=== PATIENT | male | born 1955 | race Caucasian/White ===

== ENCOUNTER 2022-01-24 15:04 | Inpatient (IN) | payer OTHER, SELFPAY ==
[2022-01-24] VITALS (14 sets, daily range): BP systolic 119–181; BP diastolic 58–84; PULSE 98–126; RESP 16–22; TEMP 36–38.6; O2SAT 92–95; BMI 33.6
--- NOTE | 2022-01-24 15:18 | ED_ITS ---
HPI - General Adult General Chief complaint: Fever Stated complaint: Stomach issues high blood pressure high blood suga Time Seen by Provider: 01/24/22 15:08 History of Present Illness HPI narrative: 66-year-old gentleman with history of type 2 diabetes, hypertension, asthma, and reflux who presents with worsening abdominal pain, fatigue, dyspnea and hyperglycemia. He has noted that is he has had abdominal pain for the past 2 weeks and has been minimally mobile it has been dramatically worse over the past 3 days to the point he is not able to eat, take his medications and at this point he is weak enough that he is having trouble standing and walking. Abdominal pain continues to worsen. He describes no overt vomiting or diarrhea. He is short of breath secondary to abdominal pain but does not feel that he is wheezing. He reports no significant fevers or headaches. He has not had any increased lower extremity edema. He has had no chest pain or palpitations. On presentation today he is having such abdominal pain that he is actually having trouble taking a full breath and completing sentences. Related Data Allergies Allergy/AdvReac Type Severity Reaction Status Date / Time sulfacetamide Allergy Severe Swelling Verified 01/24/22 16:12 [From Sulfamide] of Lip/Tongue/Throat Review of Systems Review of Systems Narrative: Remainder of complete review of systems is otherwise unremarkable except for that included in the HPI. Patient History Medical History Acid reflux Diabetes Hypertension Surgical History History of partial colectomy Social History Smoking Status: Never smoker Exam Initial Vital Signs Initial Vital Signs: Vital Signs Temperature 100 F H 01/24/22 15:17 Pulse Rate 126 H 01/24/22 15:17 Respiratory Rate 18 01/24/22 15:17 Blood Pressure 146/81 H 01/24/22 15:17 Pulse Oximetry 95 01/24/22 15:17 Oxygen Delivery Method 01/24/22 15:17 General: Pale in obvious distress able to complete full sentences secondary to severity of his abdominal pain and splinting. Unable to take a deep breath due to his abdominal pain. Still able to relate a complete and coherent history. Well-nourished well-developed HEENT: Moist mucous membranes, normal sclera with reactive pupils, Neck: No JVD, supple Respiratory: Lungs are clear to auscultation, no wheezing no rales no rhonchi. Full and symmetrical air movement Cardiac: Tachycardic without murmurs Abdomen: Distended, diffusely tender, hypoactive bowel tones, no flank pain Skin: Warm and dry, no rashes Neurologic: Grossly neurologically intact with no obvious asymmetries or abnormalities Extremities: No trauma, well perfused Psych: Cooperative, appropriate insight and affect Course Orders Ordered: ED Orders 01/24/22 15:29 CT abdomen pelvis w con Stat XR chest 1V Stat EKG-12 Lead Stat 01/24/22 15:35 Complete Blood Count AUTO DIFF Stat Comprehensive Metabolic Panel Stat Lactate (Lactic Acid) Stat Lipase Stat Magnesium Stat Procalcitonin Stat Troponin I Stat 01/24/22 15:41 Venous Blood Gas Stat 01/24/22 15:45 COVID19 -Nasal RAPID/Pre-Proc Stat 01/24/22 15:55 Urinalysis and Microscopic Stat 01/24/22 16:10 Blood Culture Stat 01/24/22 17:45 Trop I [Troponin I] Stat Hydromorphone HCl (Hydromorphone 0.5 Mg Inj) 0.5 mg IV Q15MIN PRN PRN Reason: Pain, Last Admin: 01/24/22 17:12 Dose: 0.5 mg Documented By: Admin: 01/24/22 16:16 Dose: 0.5 mg Documented By: BERENICE Discontinued Medications Acetaminophen (Acetaminophen 325 Mg Tablet) 975 mg PO NOW ONE Stop: 01/24/22 16:28 Last Admin: 01/24/22 16:38 Dose: Not Given Documented By: BERENICE Acetaminophen (Acetaminophen 325 Mg Tablet) 975 mg PO NOW ONE Stop: 01/24/22 16:28 Last Admin: 01/24/22 16:38 Dose: 975 mg Documented By: BERENICE Sodium Chloride (Normal Saline 0.9%) 1,000 mls @ 1,000 mls/hr IV BOLUS ONE Stop: 01/24/22 16:26 Last Admin: 01/24/22 16:16 Dose: 1,000 mls/hr Documented By: BERENICE Ceftriaxone Sodium 2,000 mg/ (Sodium Chloride) 100 mls @ 200 mls/hr IV NOW ONE Stop: 01/24/22 17:36 Last Admin: 01/24/22 17:59 Dose: 200 mls/hr Documented By: JHONATAN Azithromycin 500 mg/ Dextrose 250 mls @ 250 mls/hr IV NOW ONE Stop: 01/24/22 17:36 Ondansetron HCl (Ondansetron 4 Mg/2 Ml Inj) 4 mg IV NOW ONE Stop: 01/24/22 15:28 Last Admin: 01/24/22 16:16 Dose: 4 mg Documented By: BERENICE Tamsulosin HCl (Tamsulosin 0.4 Mg Capsule) 0.4 mg PO NOW ONE Stop: 01/24/22 17:36 Last Admin: 01/24/22 17:59 Dose: 0.4 mg Documented By: JHONATAN Vital Signs Vital signs: Vital Signs - 8 hr 01/24/22 15:17 01/24/22 16:38 01/24/22 15:41 Temperature 100 F H 101.5 F H Pulse Rate 126 H 126 H Respiratory Rate 18 Blood Pressure 146/81 H Pulse Oximetry 95 95 Oxygen Delivery Method Room Air 01/24/22 15:42 01/24/22 15:42 01/24/22 15:45 Temperature Pulse Rate 125 H 124 H Respiratory Rate Blood Pressure 181/84 H Pulse Oximetry 94 94 Oxygen Delivery Method Medical Decision Making Lab Data Result diagrams: 01/24/22 15:35 01/24/22 15:35 Labs: Lab Results 01/24/22 01/24/22 01/24/22 Range/Units 15:35 15:35 15:35 WBC 15.9 H (4.5-11.0) X10^3/uL RBC 4.43 L (4.5-5.9) X10^6/uL Hgb 13.0 L (13.5-17.5) g/dL Hct 39.0 L (41-53) % MCV 88.1 (80-100) fL MCH 29.4 (26-34) PG MCHC 33.3 (30-36) % RDW 13.9 (11.6-14.8) % Plt Count 183 (150-400) X10^3/uL Neut % (Auto) 84.8 H (50-75) % Lymph % (Auto) 5.3 L (25-40) % [place] % (Auto) 9.5 (3-14) % Eos % (Auto) 0.0 L (2-4) % Baso % (Auto) 0.4 (0-2) % Neut # (Auto) 25953 H (1819-4247) /uL Lymph # (Auto) 800 L (1327-1105) /uL [place] # (Auto) 1500 H (0-900) /uL Eos # (Auto) 0 (0-450) /uL Baso # (Auto) 100 (0-100) /uL VBG pH (7.33-7.43) VBG pCO2 (45-50) mmHg VBG pO2 (35-45) mmHg VBG HCO3 (23-28) mmol/L VBG Total CO2 (24-29) mmol/L VBG O2 Saturation (70-75) % VBG Base Excess (0-4) mmol/L Sodium 126 L (137-145) mmol/L Potassium 4.4 (3.4-5.1) mmol/L Chloride 95 L (98-107) mmol/L Carbon Dioxide 20 L (22-32) mmol/L BUN 31 H (9-20) mg/dL Creatinine 1.21 (0.66-1.25) mg/dL Estimated GFR > 60 (>60) mL/min BUN/Creatinine Ratio 25.6 H (6-22) Glucose 531 H* (80-110) mg/dL Lactate 1.1 (0.7-2.1) mmol/L Calcium 9.0 (8.4-10.2) mg/dL Magnesium 1.8 (1.6-2.3) mg/dL Total Bilirubin 1.0 (0.2-1.3) mg/dL AST 21 (17-59) IU/L ALT 17 (<50) IU/L Alkaline Phosphatase 106 (38-126) U/L Troponin I 0.039 H (0.01-0.034) ng/mL Total Protein 7.4 (6.3-8.2) g/dL Albumin 3.7 (3.5-5.0) g/dL Globulin 3.7 (1.7-4.1) g/dL Albumin/Globulin Ratio 1.0 (1.0-2.8) Lipase 290 (23-300) U/L Procalcitonin 1.69 H (<0.5) ng/mL Urine Color Urine Appearance Urine pH (4.5-8.0) Ur Specific [place] (1.000-1.035) Urine Protein (Negative) Urine Glucose (UA) (Negative) g/dL Urine Ketones (NEGATIVE) Urine Occult Blood (Negative) Urine Nitrate (Negative) Urine Bilirubin (NEGATIVE) Urine Urobilinogen (0.2) E.U./dL Ur Leukocyte Esterase (NEGATIVE) Urine RBC (0-5/HPF) Urine WBC (0-5/HPF) Ur Squamous Epith Cells (0-5/HPF) Urine Bacteria (None) Ur Culture Indicated? SARS-CoV-2 (PCR) (Negative) 01/24/22 01/24/22 01/24/22 Range/Units 15:41 15:45 15:55 WBC (4.5-11.0) X10^3/uL RBC (4.5-5.9) X10^6/uL Hgb (13.5-17.5) g/dL Hct (41-53) % MCV (80-100) fL MCH (26-34) PG MCHC (30-36) % RDW (11.6-14.8) % Plt Count (150-400) X10^3/uL Neut % (Auto) (50-75) % Lymph % (Auto) (25-40) % [place] % (Auto) (3-14) % Eos % (Auto) (2-4) % Baso % (Auto) (0-2) % Neut # (Auto) (9952-5287) /uL Lymph # (Auto) (0816-1937) /uL [place] # (Auto) (0-900) /uL Eos # (Auto) (0-450) /uL Baso # (Auto) (0-100) /uL VBG pH 7.47 H (7.33-7.43) VBG pCO2 29.4 L (45-50) mmHg VBG pO2 48 H (35-45) mmHg VBG HCO3 22 L (23-28) mmol/L VBG Total CO2 22 L (24-29) mmol/L VBG O2 Saturation 87 H (70-75) % VBG Base Excess -2.0 L (0-4) mmol/L Sodium (137-145) mmol/L Potassium (3.4-5.1) mmol/L Chloride (98-107) mmol/L Carbon Dioxide (22-32) mmol/L BUN (9-20) mg/dL Creatinine (0.66-1.25) mg/dL Estimated GFR (>60) mL/min BUN/Creatinine Ratio (6-22) Glucose (80-110) mg/dL Lactate (0.7-2.1) mmol/L Calcium (8.4-10.2) mg/dL Magnesium (1.6-2.3) mg/dL Total Bilirubin (0.2-1.3) mg/dL AST (17-59) IU/L ALT (<50) IU/L Alkaline Phosphatase (38-126) U/L Troponin I (0.01-0.034) ng/mL Total Protein (6.3-8.2) g/dL Albumin (3.5-5.0) g/dL Globulin (1.7-4.1) g/dL Albumin/Globulin Ratio (1.0-2.8) Lipase (23-300) U/L Procalcitonin (<0.5) ng/mL Urine Color Yellow Urine Appearance Clear Urine pH 5.0 (4.5-8.0) Ur Specific [place] <=1.005 (1.000-1.035) Urine Protein Trace H (Negative) Urine Glucose (UA) 2+ H (Negative) g/dL Urine Ketones 1+ H (NEGATIVE) Urine Occult Blood 2+ H (Negative) Urine Nitrate Negative (Negative) Urine Bilirubin Negative (NEGATIVE) Urine Urobilinogen 0.2 (0.2) E.U./dL Ur Leukocyte Esterase Negative (NEGATIVE) Urine RBC 0-1/hpf (0-5/HPF) Urine WBC None seen (0-5/HPF) Ur Squamous Epith Cells None seen (0-5/HPF) Urine Bacteria None seen (None) Ur Culture Indicated? Cult not indicated SARS-CoV-2 (PCR) Negative (Negative) Imaging Data Chest x-ray: Radiologist's Impression: FINDINGS:? ? Surgical changes and devices:? None.? ? Lungs and pleura:? There is ill-defined density projecting over the left upper lateral subpleural surface of uncertain etiology.? Lungs are otherwise clear.? No consolidation or pleural effusion. ? Mediastinum:? Mediastinal contours appear normal.? Heart size is normal.? ? Bones and chest wall:? No suspicious bony lesions.? Overlying soft tissues appear unremarkable.? ? IMPRESSION:? ? 1. No acute cardiopulmonary disease. ? 2. Left lateral upper lobe, possibly pleural-based opacity of uncertain e tiology.? Routine chest CT following resolution of the patient's acute illness is recommended for further evaluation.? ? ? Dictated by: Zonia Garcia M.D. on 01/24/2022 at 15:48? CT scan - abdomen/pelvis: Radiologist's Impression: FINDINGS: ? Lower thorax:? Right basilar pulmonary infiltrate noted in the costophrenic sulcus ? Liver:? Normal in size and attenuation. No contour deformity present. ? Biliary system:? Cholecystectomy.? No intra or extrahepatic bile duct dilation. ? Pancreas:? Unremarkable without mass or inflammation evident. ? Spleen:? Normal in size and density. ? Adrenals:? Normal morphology and density. ? Reproductive system:? Prostatic hypertrophy elevates the bladder floor.? Pros meredith measures 4 x 5.5 x 5.9 cm? ? Urinary system:? Normal renal size and attenuation.? Multiple cysts in both kidneys with varying size.? Mild bilateral hydronephrosis associated with bladder distensi on.? No obstructing calculus noted.? Urinary bladder unremarkable. ? Gastrointestinal system:? The bowel is unremarkable without evidence of bowel obstruction or inflammation. The stomach appears unremarkable. ? Appendix:? Appendectomy ? Peritoneal spaces:? No mesenteric or retroperitoneal adenopathy.? No free air.? No free fluid.? ? Vasculature:? The IVC, aorta and iliac vasculature are unremarkable. ? Abdominal wall:? Abdominal wall intact without evidence of ventral or inguinal hernias. ? Musculoskeletal:? Normal bone mineralization.? No acute fractures.? ? IMPRESSION: ? 1. Right lower lobe pulmonary infiltrate, consistent pneumonia. ? 2. Bilateral renal cysts of varying sizes may reflect polycystic kidney disease. ? 3. Mild bilateral hydronephrosis and hydroureter with urinary bladder distension.? Prostate is hypertrophic, and probably resulting in bladder outlet obstruction.? Approved by: Jaison Smith M.D. on 01/24/2022 at 16:21? ECG Data Interpretation: Sinus tachycardia at 1:25 a.m. Right bundle branch block No acute ischemic changes MDM Narrative Medical decision making narrative: 66-year-old gentleman with 2 weeks of mild abdominal pain and 3 days of dramatically increasing abdominal pain with associated leukocytosis. Slightly elevated troponin and will follow but I have a low suspicion for acute coronary syndrome. CT scan results are pending currently CT scan suggests a right lower lobe pneumonia. He has had his temperature increase in was given Tylenol. His abdomen shows a distended bladder large prostate and hydronephrosis likely from bladder outlet obstruction. This may be the significant portion of his pain. Lactic acid is 1.1. He is not hypotensive. He has received fluids, will begin ceftriaxone and azithromycin for outpatient pneumonia. Postvoid residual will be done. Will repeat his t roponin and re-evaluate. Of note, oxygen saturations dropped to 88% and on 2 L he is much more comfortable with saturations in the 95% range. Patient is re-examined he is having perfuse diaphoresis after his fever has broken. Shortness of breath is significantly improved on 2 L of oxygen. Pain i s improved after Eubanks catheter is placed. Findings are reviewed. Spleen that he has a right lower lobe pneumonia because of this he is having a bit of abdominal pain, the fevers and the shortness of breath along with a general malaise. There is no evidence of acute sepsis at this time. This is likely also contributing to his hyperglycemia without evidence of diabetic ketoacidosis or HHS. He does have acute urinary retention and Eubanks catheter is placed he started on tamsulosin and will need discharge leg bag and urology follow-up. Second troponin is currently pending but I suspect that this is more demand ischemia rather than acute coronary syndrome. Care is reviewed with the hospitalist service and patient will be admitted for above discussed issues. All these findings reviewed with patient and his daughter questions are answered. He is safe for transfer to the floor. Discharge Plan Departure Patient Disposition: Admitted As Inpatient Admit Date/Time: 01/24/22 18:12
--- NOTE | 2022-01-24 15:29 | DI.RAD.S_ITS ---
PROCEDURE: XR CHEST 1V INDICATIONS: abdominal pain TECHNIQUE: One view of the chest was acquired. COMPARISON: None. FINDINGS: Surgical changes and devices: None. Lungs and pleura: There is ill-defined density projecting over the left upper lateral subpleural surface of uncertain etiology. Lungs are otherwise clear. No consolidation or pleural effusion. Mediastinum: Mediastinal contours appear normal. Heart size is normal. Bones and chest wall: No suspicious bony lesions. Overlying soft tissues appear unremarkable. IMPRESSION: 1. No acute cardiopulmonary disease. 2. Left lateral upper lobe, possibly pleural-based opacity of uncertain etiology. Routine chest CT following resolution of the patient's acute illness is recommended for further evaluation. Dictated by: Zonia Garcia M.D. on 01/24/2022 at 15:48 Approved by: Zonia Garcia M.D. on 01/24/2022 at 15:49
--- NOTE | 2022-01-24 15:29 | DI.CT.S_ITS ---
PROCEDURE: CT ABDOMEN PELVIS W CON INDICATIONS: severe abdominal pain TECHNIQUE: After the administration of intravenous contrast, axial sections acquired from the lung bases to the pubic symphysis. Coronal and sagittal reformats were performed. For radiation dose reduction, the following was used: automated exposure control, adjustment of mA and/or kV according to patient size. COMPARISON: [facility], CR, ABD/AP 1VW, 03/17/2014, 8:32. FINDINGS: Lower thorax: Right basilar pulmonary infiltrate noted in the costophrenic sulcus Liver: Normal in size and attenuation. No contour deformity present. Biliary system: Cholecystectomy. No intra or extrahepatic bile duct dilation. Pancreas: Unremarkable without mass or inflammation evident. Spleen: Normal in size and density. Adrenals: Normal morphology and density. Reproductive system: Prostatic hypertrophy elevates the bladder floor. Prostate measures 4 x 5.5 x 5.9 cm Urinary system: Normal renal size and attenuation. Multiple cysts in both kidneys with varying size. Mild bilateral hydronephrosis associated with bladder distension. No obstructing calculus noted. Urinary bladder unremarkable. Gastrointestinal system: The bowel is unremarkable without evidence of bowel obstruction or inflammation. The stomach appears unremarkable. Appendix: Appendectomy Peritoneal spaces: No mesenteric or retroperitoneal adenopathy. No free air. No free fluid. Vasculature: The IVC, aorta and iliac vasculature are unremarkable. Abdominal wall: Abdominal wall intact without evidence of ventral or inguinal hernias. Musculoskeletal: Normal bone mineralization. No acute fractures. IMPRESSION: 1. Right lower lobe pulmonary infiltrate, consistent pneumonia. 2. Bilateral renal cysts of varying sizes may reflect polycystic kidney disease. 3. Mild bilateral hydronephrosis and hydroureter with urinary bladder distension. Prostate is hypertrophic, and probably resulting in bladder outlet obstruction. Approved by: Jaison Smith M.D. on 01/24/2022 at 16:21
[2022-01-24 15:50] LABS: Add Manual Diff / Slide Review NO; Basophils Absolute Auto 100 /uL (0-100); Basophils Percent Auto 0.4 % (0-2); Eosinophils Absolute Auto 0 /uL (0-450); Lymphocytes Absolute Auto 800 /uL (1100-4500); Lymphocytes Percent Auto 5.3 % (25-40); Mean Corpuscular HGB Conc 33.3 % (30-36); Mean Corpuscular Hemoglobin 29.4 PG (26-34); Mean Corpuscular Volume 88.1 fL (80-100); Monocytes Absolute Auto 1500 /uL (0-900); Monocytes Percent Auto 9.5 % (3-14); Neutrophils Absolute Auto 13400 /uL (1500-7000); Neutrophils Percent Auto 84.8 % (50-75); Platelet Count 183 X10^3/uL (150-400); Red Blood Cell Count 4.43 X10^6/uL (4.5-5.9); Red Cell Distribution Width 13.9 % (11.6-14.8); White Blood Cell Count 15.9 X10^3/uL (4.5-11.0)
[2022-01-24 16:01] LABS: Appearance Urine UA CLEAR; Bilirubin Urine UA NEGATIVE (NEGATIVE); Color Urine UA YELLOW; Glucose Urine UA 2+ g/dL (Negative); Ketones Urine UA 1+ (NEGATIVE); Leukocyte Esterase Urine UA NEGATIVE (NEGATIVE); Nitrite Urine UA NEGATIVE (Negative); Occult Blood Urine UA 2+ (Negative); Protein Urine UA TRACE (Negative); Specific Gravity Urine UA <=1.005 (1.000-1.035); Urobilinogen Urine UA 0.2 E.U./dL (0.2)
[2022-01-24 16:07] LABS: Alanine Aminotransferase 17 IU/L (<50); Albumin 3.7 g/dL (3.5-5.0); Alkaline Phosphatase 106 U/L (38-126); Aspartate Aminotransferase 21 IU/L (17-59); BUN Creatinine Ratio 25.6 (6-22); Blood Urea Nitrogen 31 mg/dL (9-20); Carbon Dioxide 20 mmol/L (22-32); Chloride 95 mmol/L (98-107); Estimated Glomerular Filt Rate > 60 mL/min (>60); Globulin 3.7 g/dL (1.7-4.1); HEMOLYSIS < 15 (0-50); Lipase 290 U/L (23-300); Magnesium 1.8 mg/dL (1.6-2.3); Potassium 4.4 mmol/L (3.4-5.1); Sodium 126 mmol/L (137-145); Total Protein 7.4 g/dL (6.3-8.2)
[2022-01-24 16:08] LABS: Lactate (Lactic Acid) 1.1 mmol/L (0.7-2.1)
[2022-01-24] MEDS: ONDANSETRON 4 MG/2 ML INJ IV (16:16)
[2022-01-24] MEDS: HYDROMORPHONE 0.5 MG INJ IV ×3 (16:16→18:13)
[2022-01-24] MEDS: SODIUM CHLORIDE 0.9% 1,000 ML 1000 ML IV ×2 (16:16→21:36)
[2022-01-24 16:19] LABS: Glucose 531 mg/dL (80-110); Troponin I 0.039 ng/mL (0.01-0.034)
[2022-01-24 16:25] LABS: Procalcitonin 1.69 ng/mL (<0.5)
[2022-01-24 16:25] LABS: PCO2 VBG 29.4 mmHg (45-50); PO2 VBG 48 mmHg (35-45)
[2022-01-24 16:26] LABS: HCO3 VBG 22 mmol/L (23-28); Oxygen Saturation VBG 87 % (70-75); Total CO2 VBG 22 mmol/L (24-29); pH VBG 7.47 (7.33-7.43)
[2022-01-24 16:28] LABS: Bacteria Urine None Seen; Culture Indicated Urine Cult Not Indicated; RBC Urine 0-1/HPF (0-5/HPF); Squamous Epithelial Cell Urine None Seen (0-5/HPF); WBC Urine None Seen (0-5/HPF)
[2022-01-24] MEDS: ACETAMINOPHEN 325 MG TABLET 975 MG PO (16:38)
[2022-01-24 17:22] LABS: COVID19 -Nasal RAPID Negative (Negative)
[2022-01-24] MEDS: TAMSULOSIN 0.4 MG CAPSULE PO (17:59)
[2022-01-24] MEDS: cefTRIAXone 2,000 MG in SODIUM CHLORIDE 0.9% 100 ML 200 MG IV (17:59)
[2022-01-24 18:23] LABS: Troponin I 0.043 ng/mL (0.01-0.034)
[2022-01-24] MEDS: AZITHROMYCIN 500 MG in DEXTROSE 5% IN WATER 250 ML 250 MG IV (18:37)
[2022-01-24 20:52] LABS: D Dimer 628 ng/ml (<500)
--- NOTE | 2022-01-24 21:18 | DI.CT.S_ITS ---
PROCEDURE: CT ANGIO CHEST PE PROTOCOL INDICATIONS: sob TECHNIQUE: After the administration of intravenous contrast, 2 mm thick sections acquired from the pulmonary apices to the posterior costophrenic angles. 3-dimensional maximum intensity projection (MIP) coronal and sagittal reformats were then acquired through the thorax. For radiation dose reduction, the following was used: automated exposure control, adjustment of mA and/or kV according to patient size. COMPARISON: [facility], CT, CT ABDOMEN PELVIS W CON, 01/24/2022, 16:26. FINDINGS: Image quality: Excellent. Pulmonary arteries: Pulmonary arteries are normal in size, and demonstrate no intraluminal filling defects to suggest central pulmonary embolism. Lower Neck: No lymphadenopathy by size criteria. Thyroid: Visualized thyroid demonstrates no discrete nodules. Axillae: No lymphadenopathy by size criteria. Chest Wall: Unremarkable. Bones: Visualized osseous structures demonstrate no suspicious lesions. Lungs and Airways: There are confluent bilateral areas of consolidation within the lower lobes, right greater than left as well as within the upper lobes extending along the major fissures. There are associated areas of confluent ground-glass opacity with septal thickening. Findings are consistent with pneumonia. The trachea and central airways are patent. Pleura: No pneumothorax or pleural effusions. Heart: Heart size is normal. No pericardial effusion. Thoracic Vessels: The thoracic aorta is normal in size. Mediastinum and [place]: No lymphadenopathy by size criteria. Esophagus: No wall thickening. There is a moderate-sized hiatal hernia. Abdomen: Visualized upper abdomen redemonstrates a few cysts within the partially visualized kidneys. In addition, within the posterior right kidney, there is a oval lesion isodense to the renal cortex consistent with a hyperdense renal cyst or renal mass measuring up to 2.8 cm. IMPRESSION: 1. No evidence of pulmonary embolism. 2. Bilateral confluent areas of consolidation as well as ground-glass opacities with septal thickening. Findings most likely represent pneumonia. 3. Hyperdense cyst or mass within the right kidney. Recommend further evaluation with an ultrasound or renal mass protocol CT or MRI. 4. Moderate-sized hiatal hernia. Dictated by: Ken Meadows M.D. on 01/24/2022 at 23:53 Approved by: Ken Meadows M.D. on 01/25/2022 at 0:05
--- NOTE | 2022-01-24 21:27 | PM.HP.1 ---
History of Present Illness History of Present Illness Date Patient Seen: 01/24/22 Time Patient Seen: 21:00 Chief complaint: Stomach issues high blood pressure high blood suga Narrative: Mr. Foss is a 66M with PMH DM, HTN, GERD who presents to the hospital with urinary hesitancy, abdominal pain and shortness of breath. He notes at least a week of abdominal pain that has worsened over the last few days. He has noted nausea and vomiting. No diarrhea. He feels weak, he has not had much appetite for the last few days. He has had a fever to 102.2. He has no cough. He does note shortness of breath. He has not had dysuria but he has had straining with urination. No chest pain, palpitation, lower extremity edema. In the ED workup was done, vitals notable for temp 100, heart rate 126. blood pressure 146/81. O2 sat dropped to the 80s and placed on 2L o2. Labs notable for WBC 15.9, hgb 13, plts 183. Na 126. BUN 31, creatinine 1.21. Blood sugar 531. Lactate 1.1. Procal 1.69. trop 0.039->0.043. UA negative for infection. COVID negative. Chest xray showed left lateral upper lobe density that was ill defined. CT abdomen/pelvis showed right lower pulmonary infiltrate and bilateral renal cysts with mild bilateral hydronephrosis and hydroureter. He had a blankenship placed with immediate drainage of significant urine. He was ordered for fluids and antibiotics and admitted for further treatment. Family history: mother CVA, sister with breast cancer Patient History Medical History Acid reflux Diabetes Hypertension Surgical History History of partial colectomy Family & Social History Social History: household members spouse Prior Living Arrangements RV Safety & Behavioral: Feels Safe in Current Yes Environment Been Physically Hurt or No Threatened By a Person Tobacco & Substance use: Tobacco type cigarettes Smoking Status Current every day smoker Smoking packs per day 1 alcohol intake current alcohol intake frequency holiday/special occasion Substance Use Type does not use Meds Home Medications and Allergies Home Medications Medication Instructions Recorded Confirmed Type albuterol sulfate 90 mcg/actuation 2 puff inhalation BID 01/24/22 01/24/22 History aerosol inhaler (Ventolin HFA) cyclobenzaprine 10 mg tablet 10 mg PO TID 01/24/22 01/24/22 History insulin glargine 100 unit/mL (3 80 unit SUBCUT DAILY 01/24/22 01/24/22 History mL) subcutaneous pen (Lantus Solostar U-100 Insulin) insulin lispro 100 unit/mL See Rx Instructions .Route .COMPLEX 01/24/22 01/24/22 History subcutaneous cartridge (Humalog U-100 Insulin) Allergies Allergy/AdvReac Type Severity Reaction Status Date / Time sulfacetamide Allergy Severe Swelling Verified 01/24/22 16:12 [From Sulfamide] of Lip/Tongue/Throat Review of Systems Review of Systems Narrative: 14 systems reviewed and negative aside from what is noted in HPI Exam Vital Signs (past 8 hours): - 01/24/22 15:17 01/24/22 16:38 01/24/22 15:41 Temperature 100 F H 101.5 F H Pulse Rate 126 H 126 H Respiratory Rate 18 Blood Pressure 146/81 H Pulse Oximetry 95 95 Oxygen Delivery Method Room Air Oxygen Flow Rate 01/24/22 15:42 01/24/22 15:42 01/24/22 15:45 Temperature Pulse Rate 125 H 124 H Respiratory Rate Blood Pressure 181/84 H Pulse Oximetry 94 94 Oxygen Delivery Method Oxygen Flow Rate 01/24/22 18:09 01/24/22 18:50 Temperature 99.0 F 96.8 F L Pulse Rate 101 H 98 H Respiratory Rate 22 18 Blood Pressure 124/58 L 136/71 Pulse Oximetry 94 95 Oxygen Delivery Method Nasal Cannula Oxygen Flow Rate 2 0 Oxygen Delivery Method Nasal Cannula Oxygen Flow Rate 0 Narrative Exam Narrative: GEN: fatigued, ill appearing HEENT: dry mucous membranes, poor dentition, PERRL NECK: trachea midline, no JVD PULM: poor air movement bilaterally, no wheezes, rhonchi, rales ABD: mildly distended, diffusely and mildly tender, soft, no organomegaly, normal bowel sounds : blankenship in place EXT: warm and well perfused with no edema NEURO: sleepy, oriented, no focal deficits noted Objective Labs Result Diagrams: 01/24/22 15:35 01/24/22 15:35 Labs: Laboratory Results - last 24 hr 01/24/22 01/24/22 01/24/22 15:30 15:35 15:35 WBC 15.9 H RBC 4.43 L Hgb 13.0 L Hct 39.0 L MCV 88.1 MCH 29.4 MCHC 33.3 RDW 13.9 Plt Count 183 Neut % (Auto) 84.8 H Lymph % (Auto) 5.3 L [place] % (Auto) 9.5 Eos % (Auto) 0.0 L Baso % (Auto) 0.4 Neut # (Auto) 14967 H Lymph # (Auto) 800 L [place] # (Auto) 1500 H Eos # (Auto) 0 Baso # (Auto) 100 D-Dimer 628 H VBG pH VBG pCO2 VBG pO2 VBG HCO3 VBG Total CO2 VBG O2 Saturation VBG Base Excess Sodium 126 L Potassium 4.4 Chloride 95 L Carbon Dioxide 20 L BUN 31 H Creatinine 1.21 Estimated GFR > 60 BUN/Creatinine Ratio 25.6 H Glucose 531 H* Lactate Calcium 9.0 Magnesium 1.8 Total Bilirubin 1.0 AST 21 ALT 17 Alkaline Phosphatase 106 Troponin I 0.039 H Total Protein 7.4 Albumin 3.7 Globulin 3.7 Albumin/Globulin Ratio 1.0 Lipase 290 Procalcitonin 1.69 H Urine Color Urine Appearance Urine pH Ur Specific [place] Urine Protein Urine Glucose (UA) Urine Ketones Urine Occult Blood Urine Nitrate Urine Bilirubin Urine Urobilinogen Ur Leukocyte Esterase Urine RBC Urine WBC Ur Squamous Epith Cells Urine Bacteria Ur Culture Indicated? SARS-CoV-2 (PCR) 01/24/22 01/24/22 01/24/22 15:35 15:41 15:45 WBC RBC Hgb Hct MCV MCH MCHC RDW Plt Count Neut % (Auto) Lymph % (Auto) [place] % (Auto) Eos % (Auto) Baso % (Auto) Neut # (Auto) Lymph # (Auto) [place] # (Auto) Eos # (Auto) Baso # (Auto) D-Dimer VBG pH 7.47 H VBG pCO2 29.4 L VBG pO2 48 H VBG HCO3 22 L VBG Total CO2 22 L VBG O2 Saturation 87 H VBG Base Excess -2.0 L Sodium Potassium Chloride Carbon Dioxide BUN Creatinine Estimated GFR BUN/Creatinine Ratio Glucose Lactate 1.1 Calcium Magnesium Total Bilirubin AST ALT Alkaline Phosphatase Troponin I Total Protein Albumin Globulin Albumin/Globulin Ratio Lipase Procalcitonin Urine Color Urine Appearance Urine pH Ur Specific [place] Urine Protein Urine Glucose (UA) Urine Ketones Urine Occult Blood Urine Nitrate Urine Bilirubin Urine Urobilinogen Ur Leukocyte Esterase Urine RBC Urine WBC Ur Squamous Epith Cells Urine Bacteria Ur Culture Indicated? SARS-CoV-2 (PCR) Negative 01/24/22 01/24/22 15:55 17:45 WBC RBC Hgb Hct MCV MCH MCHC RDW Plt Count Neut % (Auto) Lymph % (Auto) [place] % (Auto) Eos % (Auto) Baso % (Auto) Neut # (Auto) Lymph # (Auto) [place] # (Auto) Eos # (Auto) Baso # (Auto) D-Dimer VBG pH VBG pCO2 VBG pO2 VBG HCO3 VBG Total CO2 VBG O2 Saturation VBG Base Excess Sodium Potassium Chloride Carbon Dioxide BUN Creatinine Estimated GFR BUN/Creatinine Ratio Glucose Lactate Calcium Magnesium Total Bilirubin AST ALT Alkaline Phosphatase Troponin I 0.043 H Total Protein Albumin Globulin Albumin/Globulin Ratio Lipase Procalcitonin Urine Color Yellow Urine Appearance Clear Urine pH 5.0 Ur Specific [place] <=1.005 Urine Protein Trace H Urine Glucose (UA) 2+ H Urine Ketones 1+ H Urine Occult Blood 2+ H Urine Nitrate Negative Urine Bilirubin Negative Urine Urobilinogen 0.2 Ur Leukocyte Esterase Negative Urine RBC 0-1/hpf Urine WBC None seen Ur Squamous Epith Cells None seen Urine Bacteria None seen Ur Culture Indicated? Cult not indicated SARS-CoV-2 (PCR) Assessment & Plan Assessment & Plan narrative: Mr. Foss is a 66M with H DM who presents with abdominal pain, shortness of breath, and urinary hesitancy found to have acute urinary retention and pneumonia with respiratory failure. 1. Acute hypoxemic respiratory failure secondary to pneumonia -patient with o2 sats in the 80s on admission -white count elevated consistent with infection, procal of 1.69 -patient complaining of shortness of breath -chest xray concerning for pneumonia with consolidation noted -CT chest to further eval as d-dimer borderline elevated and patient tachycardic 2. Abdominal pain, acute -suspect secondary to acute urinary retention -however despite blankenship placement, patient still complaining of pain -CT showed bilateral hydronephrosis -expect symptoms to improve with further relief of obstruction 3. Acute urinary retention secondary to likely BPH with outlet obstruction -blankenship placed in ED with good urinary output -CT showed mild hydronephrosis -UA negative for infection -started tamsulosin here -may need to dc with blankenship and get outpatient voiding trial 4. Type 2 Diabetes on insulin, with hyperglycemia -prescribed 80U lantus daily at home, does not take regularly -continue 80U lantus daily with insulin sliding scale -check a1c 5. Elevated troponin -patient with no chest pain or EKG changes -initial trop 0.03, then 0.04 -suspect secondary to demand from infection -continue to trend troponins 6. Active smoker -encouraged cessation -nebs prn 7. Left upper lung abnormality -noted on chest xray -ordered CT chest for further evaluation CODE: Full Proxy: Nataly Foss I have utilized all available resources to reconcile the patient's home medications. Time Spent With Patient Critical Care time: I spent a total of [] minutes of critical care time on this patient's care today; this time is exclusive of procedural time. Quality VTE Deep Vein Thrombosis/Pulmonary Embolism Present on Admission: No MIPS - Admit I confirm the patient?s Advance Care Plan is present, Code status is documented, Surrogate decision maker is in patient?s record [If Yes, STOP here]: Yes
[2022-01-24] MEDS: INSULIN LISPRO 100 UNIT/ML 3ML VIAL SUBCUT (21:37)
[2022-01-24] MEDS: ACETAMINOPHEN 325 MG TABLET 650 MG PO (21:43)
[2022-01-24] MEDS: INSULIN GLARGINE 100 UNIT/ML 3ML PEN 80 UNIT SUBCUT (21:53)
[2022-01-25] VITALS (11 sets, daily range): BP systolic 117–156; BP diastolic 66–75; PULSE 95–118; RESP 18–26; TEMP 36.9–38.3; O2SAT 92–96
--- NOTE | 2022-01-25 00:11 | DI.US.S_ITS ---
PROCEDURE: US RENAL COMPLETE INDICATIONS: BILATERAL CYSTS ON CT TECHNIQUE: Real-time scanning was performed of the kidneys and bladder, with image documentation. COMPARISON: [facility], CT, ABD/PELVIS W/CON (PNL), 03/14/2014, 11:19. [facility], CT, CT ABDOMEN PELVIS W CON, 01/24/2022, 16:26. FINDINGS: Kidneys: Kidneys are normal in size. Right kidney measures 12.3 cm long; left kidney measures 12.3 cm long. Right renal cortical thickness is 2.2 cm; left renal cortical thickness is 2.1 cm. Renal cortical echotexture is normal. No left hydronephrosis. Right hydronephrosis versus a renal sinus cyst. Small stones seen on recent CT are not seen sonographically. No suspicious solid mass lesions are identified. Cortical cysts are present in both kidneys as seen on recent CT. Largest right-sided cyst measures up to 5.0 centimeters and largest left-sided cyst measures up to 3.2 centimeters. No suspicious features identified within the visualized cysts. Bladder: A Eubanks catheter is present. The bladder is decompressed and not well evaluated. Miscellaneous: No free pelvic fluid. IMPRESSION: 1. Appearance of the right kidney is indeterminate for hydronephrosis versus presence of a large renal sinus cyst, however a renal sinus cyst is favored as no definite proximal hydroureter is visualized. CT IVP could be obtained for further evaluation if clinically indicated. 2. No left hydronephrosis. 3. A 2.9 centimeter intermediate density structure at the right mid kidney on the prior CT (series 4, image 40 of that examination) is indeterminate for a solid mass versus hemorrhagic/proteinaceous cyst. No definite solid renal mass identified sonographically on the current study, however evaluation/comparison between modalities is difficult due to the presence of multiple cysts. Follow-up renal protocol MRI or CT is recommended for further evaluation on a nonemergent basis. Dictated by: Jaden Haywood M.D. on 01/25/2022 at 14:57 Approved by: Jaden Haywood M.D. on 01/25/2022 at 15:13
[2022-01-25] MEDS: ACETAMINOPHEN 325 MG TABLET 650 MG PO ×4 (02:08→19:57)
--- NOTE | 2022-01-25 02:32 | PC.NURSE ---
Pt admitted at shift change. BS was 409 around 2100, 80 units of lantus and 10 units of humalog was given, at 0220 BS 159. Pt is on 2L NC sating at 92%. Pt was shivering a lot w/ fever of 100.9 and tachy at 110s, order changed for tylenol Q4 and given. Shivers are almost gone and temp now 100.1 but still tachy. Pt has stated that he has sleep apnea but does not wear CPAP at home but has one. Pt also states he smokes a pack a day. asked why BS was so high even though he hasnt been eating much. Rn educated that pt has not been controlling diabetes and it increases when sick. pt says most recent A1c was 9 and stated he knows its high.
[2022-01-25 07:35] LABS: Add Manual Diff / Slide Review NO; Basophils Absolute Auto 0 /uL (0-100); Basophils Percent Auto 0.2 % (0-2); Eosinophils Absolute Auto 0 /uL (0-450); Eosinophils Percent Auto 0.2 % (2-4); Hemoglobin 12.3 g/dL (13.5-17.5); Lymphocytes Absolute Auto 1000 /uL (1100-4500); Lymphocytes Percent Auto 7.3 % (25-40); Mean Corpuscular Hemoglobin 29.4 PG (26-34); Mean Corpuscular Volume 86.5 fL (80-100); Monocytes Absolute Auto 1300 /uL (0-900); Monocytes Percent Auto 10.3 % (3-14); Neutrophils Absolute Auto 10700 /uL (1500-7000); Platelet Count 176 X10^3/uL (150-400); Red Blood Cell Count 4.16 X10^6/uL (4.5-5.9); Red Cell Distribution Width 14.3 % (11.6-14.8); White Blood Cell Count 13.1 X10^3/uL (4.5-11.0)
[2022-01-25 07:37] LABS: BUN Creatinine Ratio 21.3 (6-22); Blood Urea Nitrogen 26 mg/dL (9-20); Calcium 8.7 mg/dL (8.4-10.2); Carbon Dioxide 24 mmol/L (22-32); Chloride 101 mmol/L (98-107); Estimated Glomerular Filt Rate > 60 mL/min (>60); Glucose 125 mg/dL (80-110); HEMOLYSIS < 15 (0-50); Potassium 4.3 mmol/L (3.4-5.1); Sodium 132 mmol/L (137-145)
--- NOTE | 2022-01-25 07:41 | PM.PN.1 ---
Subjective Subjective Date Patient Seen: 01/25/22 Time Patient Seen: 16:00 Interval history: Patient notes improved suprapubic pain but ongoing upper abdominal pain. No pleuritic pain. at bedside. Exam Vital Signs (past 8 hours): - 01/24/22 23:55 01/25/22 00:22 01/25/22 02:20 Temperature 98.6 F 100.9 F H Pulse Rate 102 H 118 H Respiratory Rate 18 Blood Pressure Pulse Oximetry 93 92 Oxygen Delivery Method Nasal Cannula Oxygen Flow Rate 2 2 01/25/22 01:50 01/25/22 06:32 Temperature 99.2 F 99.8 F H Pulse Rate 112 H 110 H Respiratory Rate 20 18 Blood Pressure 117/75 132/72 Pulse Oximetry 93 95 Oxygen Delivery Method Oxygen Flow Rate 2 2 Oxygen Delivery Method Nasal Cannula Oxygen Flow Rate 2 Narrative Exam Narrative: GEN: fatigued, ill appearing HEENT: dry mucous membranes, poor dentition, PERRL NECK: trachea midline, no JVD PULM: poor air movement bilaterally, no wheezes, rhonchi, rales ABD: mildly distended, tender to upper abd with palpation, soft, no organomegaly, normal bowel sounds : blankenship in place EXT: warm and well perfused with no edema NEURO: sleepy, oriented, no focal deficits noted Objective Labs Result Diagrams: 01/25/22 06:50 01/25/22 06:50 Labs: Laboratory Results - last 24 hr 01/24/22 01/24/22 01/24/22 15:30 15:35 15:35 WBC 15.9 H RBC 4.43 L Hgb 13.0 L Hct 39.0 L MCV 88.1 MCH 29.4 MCHC 33.3 RDW 13.9 Plt Count 183 Neut % (Auto) 84.8 H Lymph % (Auto) 5.3 L [place] % (Auto) 9.5 Eos % (Auto) 0.0 L Baso % (Auto) 0.4 Neut # (Auto) 68191 H Lymph # (Auto) 800 L [place] # (Auto) 1500 H Eos # (Auto) 0 Baso # (Auto) 100 D-Dimer 628 H VBG pH VBG pCO2 VBG pO2 VBG HCO3 VBG Total CO2 VBG O2 Saturation VBG Base Excess Sodium 126 L Potassium 4.4 Chloride 95 L Carbon Dioxide 20 L BUN 31 H Creatinine 1.21 Estimated GFR > 60 BUN/Creatinine Ratio 25.6 H Glucose 531 H* Lactate Calcium 9.0 Magnesium 1.8 Total Bilirubin 1.0 AST 21 ALT 17 Alkaline Phosphatase 106 Troponin I 0.039 H Total Protein 7.4 Albumin 3.7 Globulin 3.7 Albumin/Globulin Ratio 1.0 Lipase 290 Procalcitonin 1.69 H Urine Color Urine Appearance Urine pH Ur Specific [place] Urine Protein Urine Glucose (UA) Urine Ketones Urine Occult Blood Urine Nitrate Urine Bilirubin Urine Urobilinogen Ur Leukocyte Esterase Urine RBC Urine WBC Ur Squamous Epith Cells Urine Bacteria Ur Culture Indicated? SARS-CoV-2 (PCR) 01/24/22 01/24/22 01/24/22 15:35 15:41 15:45 WBC RBC Hgb Hct MCV MCH MCHC RDW Plt Count Neut % (Auto) Lymph % (Auto) [place] % (Auto) Eos % (Auto) Baso % (Auto) Neut # (Auto) Lymph # (Auto) [place] # (Auto) Eos # (Auto) Baso # (Auto) D-Dimer VBG pH 7.47 H VBG pCO2 29.4 L VBG pO2 48 H VBG HCO3 22 L VBG Total CO2 22 L VBG O2 Saturation 87 H VBG Base Excess -2.0 L Sodium Potassium Chloride Carbon Dioxide BUN Creatinine Estimated GFR BUN/Creatinine Ratio Glucose Lactate 1.1 Calcium Magnesium Total Bilirubin AST ALT Alkaline Phosphatase Troponin I Total Protein Albumin Globulin Albumin/Globulin Ratio Lipase Procalcitonin Urine Color Urine Appearance Urine pH Ur Specific [place] Urine Protein Urine Glucose (UA) Urine Ketones Urine Occult Blood Urine Nitrate Urine Bilirubin Urine Urobilinogen Ur Leukocyte Esterase Urine RBC Urine WBC Ur Squamous Epith Cells Urine Bacteria Ur Culture Indicated? SARS-CoV-2 (PCR) Negative 01/24/22 01/24/22 01/25/22 15:55 17:45 06:50 WBC 13.1 H RBC 4.16 L Hgb 12.3 L Hct 36.0 L MCV 86.5 MCH 29.4 MCHC 34.0 RDW 14.3 Plt Count 176 Neut % (Auto) 82.0 H Lymph % (Auto) 7.3 L [place] % (Auto) 10.3 Eos % (Auto) 0.2 L Baso % (Auto) 0.2 Neut # (Auto) 88174 H Lymph # (Auto) 1000 L [place] # (Auto) 1300 H Eos # (Auto) 0 Baso # (Auto) 0 D-Dimer VBG pH VBG pCO2 VBG pO2 VBG HCO3 VBG Total CO2 VBG O2 Saturation VBG Base Excess Sodium Potassium Chloride Carbon Dioxide BUN Creatinine Estimated GFR BUN/Creatinine Ratio Glucose Lactate Calcium Magnesium Total Bilirubin AST ALT Alkaline Phosphatase Troponin I 0.043 H Total Protein Albumin Globulin Albumin/Globulin Ratio Lipase Procalcitonin Urine Color Yellow Urine Appearance Clear Urine pH 5.0 Ur Specific [place] <=1.005 Urine Protein Trace H Urine Glucose (UA) 2+ H Urine Ketones 1+ H Urine Occult Blood 2+ H Urine Nitrate Negative Urine Bilirubin Negative Urine Urobilinogen 0.2 Ur Leukocyte Esterase Negative Urine RBC 0-1/hpf Urine WBC None seen Ur Squamous Epith Cells None seen Urine Bacteria None seen Ur Culture Indicated? Cult not indicated SARS-CoV-2 (PCR) 01/25/22 06:50 WBC RBC Hgb Hct MCV MCH MCHC RDW Plt Count Neut % (Auto) Lymph % (Auto) [place] % (Auto) Eos % (Auto) Baso % (Auto) Neut # (Auto) Lymph # (Auto) [place] # (Auto) Eos # (Auto) Baso # (Auto) D-Dimer VBG pH VBG pCO2 VBG pO2 VBG HCO3 VBG Total CO2 VBG O2 Saturation VBG Base Excess Sodium 132 L Potassium 4.3 Chloride 101 Carbon Dioxide 24 BUN 26 H Creatinine 1.22 Estimated GFR > 60 BUN/Creatinine Ratio 21.3 Glucose 125 H D Lactate Calcium 8.7 Magnesium Total Bilirubin AST ALT Alkaline Phosphatase Troponin I Total Protein Albumin Globulin Albumin/Globulin Ratio Lipase Procalcitonin Urine Color Urine Appearance Urine pH Ur Specific [place] Urine Protein Urine Glucose (UA) Urine Ketones Urine Occult Blood Urine Nitrate Urine Bilirubin Urine Urobilinogen Ur Leukocyte Esterase Urine RBC Urine WBC Ur Squamous Epith Cells Urine Bacteria Ur Culture Indicated? SARS-CoV-2 (PCR) [facility] Medical History Acid reflux Diabetes Hypertension Surgical History History of partial colectomy Social History household members: spouse Smoking Status: Current every day smoker alcohol intake: current Assessment & Plan Assessment & Plan narrative: Mr. Foss is a 66M with PMH DM who presents with abdominal pain, shortness of breath, and urinary hesitancy found to have acute urinary retention and pneumonia with respiratory failure. 1. Acute hypoxemic respiratory failure secondary to pneumonia, improving -patient with o2 sats in the 80s on admission -white count elevated consistent with infection, procal of 1.69 -patient complaining of shortness of breath -chest xray concerning for pneumonia with consolidation noted -CTA chest with no evidence of PE but only PNA -continue rocephin, azithro x 5 and 3 days respectively 2. Abdominal pain, acute -suspect secondary to acute urinary retention vs pleuritic pain from PNA -however despite blankenship placement, patient still complaining of pain in upper abd -CT showed bilateral hydronephrosis -expect symptoms to improve with further relief of obstruction 3. Acute urinary retention secondary to likely BPH with outlet obstruction, improving -blankenship placed in ED with good urinary output -CT showed mild hydronephrosis -UA negative for infection -started tamsulosin during admission -may need to dc with blankenship and get outpatient voiding trial 4. Type 2 Diabetes on insulin, with hyperglycemia -prescribed 80U lantus daily at home, does not take regularly -continue 40U lantus daily with insulin sliding scale -a1c 12.2% -student driving instructor consulted 5. Elevated troponin -patient with no chest pain or EKG changes -initial trop 0.03, then 0.04 -suspect secondary to demand from infection -continue to trend troponins 6. Active smoker -encouraged cessation -nebs prn 7. Left upper lung abnormality -noted on chest xray -bilateral pneumonia on CTA chest but no upper lung issue 8. Renal cysts vs mass -seen incidentally on CT, possibly polycystic kidney disease -renal US shows large right cyst vs mass, recommend outpatient f/u CODE: Full Proxy: Nataly Foss I have utilized all available resources to reconcile the patient's home medications. Time Spent With Patient Critical Care time: I spent a total of [] minutes of critical care time on this patient's care today; this time is exclusive of procedural time. Quality VTE Deep Vein Thrombosis/Pulmonary Embolism Present on Admission: No
[2022-01-25 07:43] LABS: Hemoglobin A1C% w Est Avg Glu 12.2 % (4.0-6.0)
[2022-01-25 07:48] LABS: Troponin I 0.038 ng/mL (0.01-0.034)
[2022-01-25] MEDS: AZITHROMYCIN 250 MG TABLET 500 MG PO (09:07)
[2022-01-25] MEDS: ENOXAPARIN 40 MG/0.4 ML SYRINGE SUBCUT (09:07)
[2022-01-25] MEDS: TAMSULOSIN 0.4 MG CAPSULE PO (09:07)
--- NOTE | 2022-01-25 10:44 | CM.DANOTE ---
DCP Assessment: Payor confirmed: Boo PCP confirmed: MD Bebeto @ [facility] in [place] Pt is a 66 y.o. M who presented to the ER with worsening abdominal pain, fatigue, dyspnea, and hyperglycemia. CT ordered and suggests a right lower lobe pneumonia. Pt admitted to the floor for further management and evaluation of his diagnosis. DCP met with pt this morning to discuss discharge needs. , Nataly, at the bedside. Pt laying in bed. DCP introduced self and role. 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 Pt states that he is independent at baseline and does not use any DME's. Pt does not have any discharge needs at this time. Whiteboard updated. Instructed to call. Pt thankful for discussion. P: Once medically stable, pt to discharge home via spouse POV. Shea Holland RN/CYNTHIA Discharge Planning/Care Management CM Discharge Assessment Start: 01/25/22 09:23 Freq: Status: Active Protocol: Document 01/25/22 09:23 LAUREN (Rec: 01/25/22 09:23 [id number]) Discharge Planning Assessment Assigned Blanking Machine Operator Shea Holland RN/CYNTHIA Advance Directives? No History Provided By Patient Prior Living Arrangements RV Household Members spouse Type of transporation used prior to Drives own vehicle admit Independent with ADL's Yes Is patient alert and oriented? Yes Caregiver for Another No Discharge Plan Home Transportation Arrangement Spouse POV Referrals Initiated None needed Additional Comment At this time. Whiteboard Updated in Patient Room with Yes name and ext. # of Blanking Machine Operator Comment Instructed to call if needed. Review Status In Process Please Provide Date Initial DC 01/25/22 Assessment Was Performed Next Review Type Continued Stay Review
[2022-01-25] MEDS: INSULIN LISPRO 100 UNIT/ML 3ML VIAL SUBCUT ×2 (13:30→16:51)
[2022-01-25] MEDS: ONDANSETRON 4 MG/2 ML INJ IV (13:34)
--- NOTE | 2022-01-25 13:47 | DIET.CONS ---
Dietary Consultation Note Admission Date: 01/24/2022 18:12 Assessment: 66y M admitted for pneumonia and hyperglycemia (>500 on admit) referred to nutrition for hyperglycemia with A1c 12.2. RD had received breakfast diet order for patient from machine including estonian toast, orange juice, and whole milk. When RD delivered breakfast this am, kindly informed we provided estonian toast c SF syrup, chicken sausage, and whole milk but held the juice secondary to pt exceeding carb count when ordering. RD met c pt at bedside, spouse Nataly, not in room. Pt states diagnosed c DM2 in 2004, states he went to DM education but didn't finish the series as he didn't find it helpful. Pt has not had DM ed since that time. Pt reports A1c has never been good, usually between 8-10. Pt recalls taking 80U Lantus each evening and 10-15U short acting before meals. Pt states he has not been taking all of his insulin lately because he has not been eating very much. Pt admitted c BG >500, once on insulin protocol, pts BGs in 100-150s. When asked what pt has for a sick day plan, pt states he doesn't have a plan. Pt would benefit from formal DM education with spouse present. Pt states he doesn't know that he wants DM education. Inpatient education interrupted this afternoon as pt was having cramping pain in abd. This RD will check back in the morning to initiate carb counting education with supportive handouts hopefully with spouse present for support. Ht: 170.18 cm Wt: 97.522 kg BMI: 33.6 Last BM: 01/24/22 (01/24/22 18:33) MNA: 8 Jacobo Score: 20 Diet: 01/24/22 Breakfast Carbohydrate Consistent Diet Diet Modifications: Carbohydrate level: Medium (3 CHO) Labs: RBC 4.16 X10^6/uL (4.5-5.9) L 01/25/22 06:50 Hgb 12.3 g/dL (13.5-17.5) L 01/25/22 06:50 Hct 36.0 % (41-53) L 01/25/22 06:50 Creatinine 1.22 mg/dL (0.66-1.25) 01/25/22 06:50 Hemoglobin A1c 12.2 % (4.0-6.0) H 01/25/22 06:50 Lactate 1.1 mmol/L (0.7-2.1) 01/24/22 15:35 Nutrition Diagnosis: altered nutrition related laboratory values (BG, A1c) r/t endocrine dysfunction, nutrition related knowledge deficit and medication mismanagement aeb pt admitted c BG >500, pt with A1c 12.2, pt ordered over his carb level allowed at breakfast, pt not taking insulin as directed without solid sick day plan. Interventions: 1. Introduced pt to idea of OP DSME, encouraged pt to agree to referral to help with diet and medication management, reinforced pt will feel better and have more energy once BGs in good range. Reinforced DM ed can fit into his lifestyle rather than him fitting into DM box. Pt seemed slightly more receptive with this insight. EER: 45-60g CHO per meal, 15-30g per snack Monitoring/Evaluations: f/u Wed with inpatient DM ed on carb counting, hope for referral for further OP management Electronically Signed by: Sarah Rodriguez 01/25/22 13:47 Clinical Dietitian [address] [address]
[2022-01-25] MEDS: MAG HYDROX/ALUMINUM/SIMETH SUS 20 ML, LIDOCAINE VISCOUS 2% 15 ML PO (16:21)
[2022-01-25] MEDS: PANTOPRAZOLE DR 40 MG TABLET PO (16:22)
[2022-01-25 16:36] LABS: Lipase 68 U/L (23-300)
[2022-01-25 17:14] LABS: C-Reactive Protein Quant 30.4 mg/dL (<1.0)
[2022-01-25] MEDS: cefTRIAXone 1,000 MG in SODIUM CHLORIDE 0.9% 100 ML 200 MG IV (19:33)
[2022-01-25] MEDS: SODIUM CHLORIDE 0.9% FLUSH 10 ML IV (19:34)
[2022-01-25] MEDS: SODIUM CHLORIDE 0.9% 250 ML 21 ML IV (19:34)
[2022-01-25] MEDS: INSULIN GLARGINE 100 UNIT/ML 3ML PEN 40 UNIT SUBCUT (20:44)
[2022-01-26] VITALS (14 sets, daily range): BP systolic 114–152; BP diastolic 57–83; PULSE 91–113; RESP 15–22; TEMP 36.4–37.7; O2SAT 88–98
--- NOTE | 2022-01-26 | PC.NURSE ---
Patient is alert and oriented. Breath sounds diminished but CTA; on oxygen at 2L/min per NC with sat of 95%. HRR but tachy at 113 and has elevated BP of 141/66. Denies nausea. BT present and abdomen is soft but reports diffuse tenderness with light palpation. Indwelling catheter is patent. Is able to turn himself in bed. Gait not assessed at time of assessment. Complained of generalized pain which is chronic due to fibromyalgia. Wearing bilateral calf SCD's. Temp elevated at 100.4 so was medicated with Tylenol and temp came down to 98.8. Fall risk score is high and bed alarm is activated.
[2022-01-26] MEDS: ACETAMINOPHEN 325 MG TABLET 650 MG PO ×2 (05:39→16:47)
[2022-01-26] MEDS: PANTOPRAZOLE DR 40 MG TABLET PO (06:26)
[2022-01-26 07:36] LABS: Add Manual Diff / Slide Review NO; Basophils Absolute Auto 0 /uL (0-100); Basophils Percent Auto 0.4 % (0-2); Eosinophils Absolute Auto 100 /uL (0-450); Eosinophils Percent Auto 0.6 % (2-4); Hematocrit 34.4 % (41-53); Hemoglobin 11.9 g/dL (13.5-17.5); Lymphocytes Absolute Auto 800 /uL (1100-4500); Lymphocytes Percent Auto 7.8 % (25-40); Mean Corpuscular HGB Conc 34.5 % (30-36); Mean Corpuscular Hemoglobin 29.7 PG (26-34); Monocytes Absolute Auto 1200 /uL (0-900); Monocytes Percent Auto 11.1 % (3-14); Neutrophils Absolute Auto 8500 /uL (1500-7000); Neutrophils Percent Auto 80.1 % (50-75); Platelet Count 183 X10^3/uL (150-400); Red Cell Distribution Width 14.1 % (11.6-14.8); White Blood Cell Count 10.7 X10^3/uL (4.5-11.0)
--- NOTE | 2022-01-26 07:43 | P.PN_ITS ---
Subjective Subjective Date Patient Seen: 01/26/22 Time Patient Seen: 12:00 Interval history: Patient still having abd pain but today it was in his LLQ and none in his upper quadrant like yesterday. Otherwise nothing new. Exam Vital Signs (past 8 hours): - 01/26/22 00:00 01/26/22 00:00 01/26/22 04:00 Temperature 98.6 F 99.6 F Pulse Rate 101 H 113 H Respiratory Rate 22 19 Blood Pressure 144/83 H 152/81 H Pulse Oximetry 94 94 92 Oxygen Delivery Method Room Air Oxygen Flow Rate 0 01/26/22 06:00 01/26/22 06:34 Temperature Pulse Rate Respiratory Rate Blood Pressure Pulse Oximetry 88 L 95 Oxygen Delivery Method Room Air Nasal Cannula Oxygen Flow Rate 0 2 Oxygen Delivery Method Nasal Cannula Oxygen Flow Rate 2 Narrative Exam Narrative: GEN: fatigued, ill appearing HEENT: dry mucous membranes, poor dentition, PERRL NECK: trachea midline, no JVD PULM: poor air movement bilaterally, no wheezes, rhonchi, rales ABD: mildly distended, tender to lower abd with palpation, soft, no organomegaly, normal bowel sounds : blankenship in place EXT: warm and well perfused with no edema NEURO: sleepy, oriented, no focal deficits noted Objective Labs Result Diagrams: 01/26/22 07:16 01/26/22 07:16 Labs: Laboratory Results - last 24 hr 01/25/22 01/25/22 01/25/22 06:50 06:50 06:50 WBC RBC Hgb Hct MCV MCH MCHC RDW Plt Count Neut % (Auto) Lymph % (Auto) Rhea % (Auto) Eos % (Auto) Baso % (Auto) Neut # (Auto) Lymph # (Auto) Rhea # (Auto) Eos # (Auto) Baso # (Auto) Hemoglobin A1c 12.2 H Troponin I 0.038 H C-Reactive Protein 30.4 H Lipase 01/25/22 01/26/22 06:50 07:16 WBC 10.7 RBC 4.00 L Hgb 11.9 L Hct 34.4 L MCV 86.0 MCH 29.7 MCHC 34.5 RDW 14.1 Plt Count 183 Neut % (Auto) 80.1 H Lymph % (Auto) 7.8 L Rhea % (Auto) 11.1 Eos % (Auto) 0.6 L Baso % (Auto) 0.4 Neut # (Auto) 8500 H Lymph # (Auto) 800 L Rhea # (Auto) 1200 H Eos # (Auto) 100 Baso # (Auto) 0 Hemoglobin A1c Troponin I C-Reactive Protein Lipase 68 D [facility] Medical History Acid reflux Diabetes Hypertension Surgical History History of partial colectomy Social History household members: spouse Smoking Status: Current every day smoker alcohol intake: current Assessment & Plan Assessment & Plan narrative: Mr. Foss is a 66M with H DM who presents with abdominal pain, shortness of breath, and urinary hesitancy found to have acute urinary retention and pneumonia with respiratory failure. 1. Acute hypoxemic respiratory failure secondary to pneumonia, improving -patient with o2 sats in the 80s on admission -white count elevated consistent with infection, procal of 1.69 -patient complaining of shortness of breath -chest xray concerning for pneumonia with consolidation noted -CTA chest with no evidence of PE but only PNA -continue rocephin, azithro x 5 and 3 days respectively 2. Abdominal pain, acute -suspect secondary to acute urinary retention vs pleuritic pain from PNA -however despite blankenship placement, patient still complaining of pain in upper abd -CT showed bilateral hydronephrosis -expect symptoms to improve with further relief of obstruction 3. Acute urinary retention secondary to likely BPH with outlet obstruction, improving -blankenship placed in ED with good urinary output -CT showed mild hydronephrosis -UA negative for infection -started tamsulosin during admission -may need to dc with blankenship and get outpatient voiding trial 4. Type 2 Diabetes on insulin, with hyperglycemia -prescribed 80U lantus daily at home, does not take regularly -continue 40U lantus daily with insulin sliding scale -a1c 12.2% -a and p mechanic consulted and provided education 5. Elevated troponin -patient with no chest pain or EKG changes -initial trop 0.03, then 0.04 -suspect secondary to demand from infection -continue to trend troponins 6. Active smoker -encouraged cessation -nebs prn 7. Left upper lung abnormality -noted on chest xray -bilateral pneumonia on CTA chest but no upper lung issue 8. Renal cysts vs mass -seen incidentally on CT, possibly polycystic kidney disease -renal US shows large right cyst vs mass, recommend outpatient f/u CODE: Full Proxy: Nataly Foss I have utilized all available resources to reconcile the patient's home medications. Dispo: Home in 1-2 days Time Spent With Patient Critical Care time: I spent a total of [] minutes of critical care time on this patient's care today; this time is exclusive of procedural time. Quality VTE Deep Vein Thrombosis/Pulmonary Embolism Present on Admission: No
[2022-01-26 07:45] LABS: BUN Creatinine Ratio 16.1 (6-22); Blood Urea Nitrogen 20 mg/dL (9-20); Calcium 8.6 mg/dL (8.4-10.2); Carbon Dioxide 25 mmol/L (22-32); Chloride 98 mmol/L (98-107); Estimated Glomerular Filt Rate > 60 mL/min (>60); Glucose 167 mg/dL (80-110); HEMOLYSIS < 15 (0-50); Potassium 4.3 mmol/L (3.4-5.1); Sodium 131 mmol/L (137-145)
[2022-01-26] MEDS: ENOXAPARIN 40 MG/0.4 ML SYRINGE SUBCUT (07:51)
[2022-01-26] MEDS: INSULIN LISPRO 100 UNIT/ML 3ML VIAL SUBCUT ×4 (07:51→20:27)
[2022-01-26] MEDS: TAMSULOSIN 0.4 MG CAPSULE PO (07:51)
[2022-01-26] MEDS: AZITHROMYCIN 250 MG TABLET 500 MG PO (07:52)
[2022-01-26] MEDS: SODIUM CHLORIDE 0.9% FLUSH 10 ML IV ×2 (07:54→19:41)
[2022-01-26 08:00] LABS: C-Reactive Protein Quant 24.9 mg/dL (<1.0)
--- NOTE | 2022-01-26 10:53 | DIET.CONS2 ---
Dietary Inpatient Consultation Note Admission Date: 01/24/2022 18:12 Pt and spouse asleep when RD visited this am, checked back after rounds, spouse not in room and pt sleeping soundly with blanket over his head, RD attempted to wake pt unsuccessfully. Set Inpatient DM booklet on bedside table. DM educator to meet c pt on morning. Diet: 01/24/22 Breakfast Carbohydrate Consistent Diet Diet Modifications: Carbohydrate level: Medium (3 CHO) Nutrition Percent Meal Consumed 25% 01/26/22 08:50 Electronically Signed by: Sarah Rodriguez 01/26/22 10:53 Clinical Diet[address] [address]
[2022-01-26] MEDS: OXYCODONE IR 5 MG TABLET PO (16:47)
[2022-01-26] MEDS: ALBUTEROL/IPRATROPIUM 3 ML AMPUL INH (17:45)
[2022-01-26] MEDS: NICOTINE 21 MG PATCH TOP (18:28)
[2022-01-26] MEDS: BUDESONIDE 0.5 MG/2 ML NEB INH (19:26)
[2022-01-26] MEDS: cefTRIAXone 1,000 MG in SODIUM CHLORIDE 0.9% 100 ML 200 MG IV (19:41)
[2022-01-26] MEDS: INSULIN GLARGINE 100 UNIT/ML 3ML PEN 40 UNIT SUBCUT (20:22)
[2022-01-27] VITALS (9 sets, daily range): BP systolic 101–129; BP diastolic 53–64; PULSE 79–98; RESP 17–22; TEMP 35.8–37; O2SAT 91–95
[2022-01-27] MEDS: OXYCODONE IR 5 MG TABLET PO ×4 (00:18→21:07)
--- NOTE | 2022-01-27 00:34 | PC.NURSE ---
Addendum entered by Eve Berry R.N. 01/27/22 07:28: Around 0200 noted patient, while asleep and mouth breathing, was desatting to mid 80's. Needed to increase oxygen to 5L/min to get him > 90%. RT contacted for neb treatment. Original Note: Patient is alert and oriented. Breath sounds very diminished throughout with RA sat of 92%; did start to desat so placed back on oxygen at 1L/min per NC with sat staying > 90% after. HRR w/telemetry reading of SR w/BBB at [address] w/BBB at 0000 (rate 104). Denies nausea. BT present and is drawing in machine tender helper in LLQ; medicated with oxycodone. Indwelling catheter is patent. Able to turn himself in bed. Gait not assessed at this time. Refused SCD's tonight so reminded to ankle wave when awake. Fall risk score is high and bed alarm is activated.
[2022-01-27] MEDS: ALBUTEROL/IPRATROPIUM 3 ML AMPUL INH (02:22)
[2022-01-27] MEDS: ONDANSETRON 4 MG/2 ML INJ IV (02:41)
[2022-01-27] MEDS: ACETAMINOPHEN 325 MG TABLET 650 MG PO (02:41)
[2022-01-27] MEDS: PANTOPRAZOLE DR 40 MG TABLET PO (06:31)
[2022-01-27 07:03] LABS: Add Manual Diff / Slide Review NO; Basophils Absolute Auto 100 /uL (0-100); Basophils Percent Auto 0.7 % (0-2); Eosinophils Absolute Auto 100 /uL (0-450); Eosinophils Percent Auto 0.7 % (2-4); Hematocrit 33.5 % (41-53); Hemoglobin 11.6 g/dL (13.5-17.5); Lymphocytes Absolute Auto 1000 /uL (1100-4500); Lymphocytes Percent Auto 9.2 % (25-40); Mean Corpuscular HGB Conc 34.6 % (30-36); Mean Corpuscular Hemoglobin 29.8 PG (26-34); Mean Corpuscular Volume 86.2 fL (80-100); Monocytes Absolute Auto 900 /uL (0-900); Monocytes Percent Auto 8.5 % (3-14); Neutrophils Absolute Auto 8900 /uL (1500-7000); Neutrophils Percent Auto 80.9 % (50-75); Platelet Count 178 X10^3/uL (150-400); Red Blood Cell Count 3.88 X10^6/uL (4.5-5.9); Red Cell Distribution Width 14.3 % (11.6-14.8)
[2022-01-27 07:20] LABS: BUN Creatinine Ratio 16.9 (6-22); Blood Urea Nitrogen 20 mg/dL (9-20); Calcium 8.3 mg/dL (8.4-10.2); Carbon Dioxide 26 mmol/L (22-32); Chloride 97 mmol/L (98-107); Estimated Glomerular Filt Rate > 60 mL/min (>60); Glucose 186 mg/dL (80-110); HEMOLYSIS < 15 (0-50); Potassium 4.2 mmol/L (3.4-5.1); Sodium 128 mmol/L (137-145)
--- NOTE | 2022-01-27 08:06 | P.PN_ITS ---
Subjective Subjective Date Patient Seen: 01/27/22 Time Patient Seen: 12:00 Interval history: Notes he felt really sweaty from 2-4am overnight. O2 requirements went up to 5L from 2. Currently says his breathing is fine other than cannot take a full breath. No increased cough. Abd pain intermittent but manageable. Hasn't had BM yet. Exam Vital Signs (past 8 hours): - 01/27/22 00:29 01/27/22 02:23 01/27/22 05:00 Temperature 96.5 F L Pulse Rate 98 H 86 Respiratory Rate 22 17 Blood Pressure 103/61 Pulse Oximetry 93 91 Oxygen Delivery Method Nasal Cannula Nasal Cannula Oxygen Flow Rate 5 5 Oxygen Delivery Method Nasal Cannula Oxygen Flow Rate 5 Narrative Exam Narrative: GEN: fatigued, ill appearing HEENT: dry mucous membranes, poor dentition, PERRL NECK: trachea midline, no JVD PULM: poor air movement bilaterally, no wheezes, rhonchi, rales ABD: mildly distended, tender to lower abd with palpation, soft, no organomegaly, normal bowel sounds : blankenship in place EXT: warm and well perfused with no edema NEURO: sleepy, oriented, no focal deficits noted Objective Labs Result Diagrams: 01/27/22 06:47 01/27/22 06:47 Labs: Laboratory Results - last 24 hr 01/27/22 01/27/22 06:47 06:47 WBC 11.0 RBC 3.88 L Hgb 11.6 L Hct 33.5 L MCV 86.2 MCH 29.8 MCHC 34.6 RDW 14.3 Plt Count 178 Neut % (Auto) 80.9 H Lymph % (Auto) 9.2 L [place] % (Auto) 8.5 Eos % (Auto) 0.7 L Baso % (Auto) 0.7 Neut # (Auto) 8900 H Lymph # (Auto) 1000 L [place] # (Auto) 900 Eos # (Auto) 100 Baso # (Auto) 100 Sodium 128 L Potassium 4.2 Chloride 97 L Carbon Dioxide 26 BUN 20 Creatinine 1.18 Estimated GFR > 60 BUN/Creatinine Ratio 16.9 Glucose 186 H Calcium 8.3 L PFSH Medical History Acid reflux Diabetes Hypertension Surgical History History of partial colectomy Social History household members: spouse Smoking Status: Current every day smoker alcohol intake: current Assessment & Plan Assessment & Plan narrative: Mr. Foss is a 66M with PMH DM who presents with abdominal pain, shortness of breath, and urinary hesitancy found to have acute urinary retention and pneumonia with respiratory failure. 1. Acute hypoxemic respiratory failure secondary to pneumonia and pulm edema -patient with o2 sats in the 80s on admission -white count elevated consistent with infection, procal of 1.69 -patient complaining of shortness of breath -chest xray concerning for pneumonia with consolidation noted -CTA chest with no evidence of PE but only PNA -continue rocephin, azithro x 5 and 3 days respectively -start lasix as CXR shows pulm edema which is likely cause of increased O2 req 2. Abdominal pain, improving -suspect secondary to acute urinary retention vs pleuritic pain from PNA -however despite blankenship placement, patient still complaining of pain in upper abd -CT showed bilateral hydronephrosis -expect symptoms to improve with further relief of obstruction 3. Acute urinary retention secondary to likely BPH with outlet obstruction, improving -blankenship placed in ED with good urinary output -CT showed mild hydronephrosis -UA negative for infection -started tamsulosin during admission -may need to dc with blankenship and get outpatient voiding trial 4. Type 2 Diabetes on insulin, with hyperglycemia -prescribed 80U lantus daily at home, does not take regularly -continue 40U lantus daily with insulin sliding scale -a1c 12.2% -marketing communications associate consulted and provided education 5. Elevated troponin -patient with no chest pain or EKG changes -initial trop 0.039, then 0.038 -suspect secondary to demand from infection 6. Active smoker -encouraged cessation -nebs prn 7. Left upper lung abnormality -noted on chest xray -bilateral pneumonia on CTA chest but no upper lung issue 8. Renal cysts vs mass -seen incidentally on CT, possibly polycystic kidney disease -renal US shows large right cyst vs mass, recommend outpatient f/u CODE: Full Proxy: Nataly Foss I have utilized all available resources to reconcile the patient's home medications. Dispo: Home vs SNF in 1 day pending PT eval. Time Spent With Patient Critical Care time: I spent a total of [] minutes of critical care time on this patient's care today; this time is exclusive of procedural time. Quality VTE Deep Vein Thrombosis/Pulmonary Embolism Present on Admission: No
[2022-01-27] MEDS: INSULIN LISPRO 100 UNIT/ML 3ML VIAL SUBCUT ×4 (08:12→20:56)
[2022-01-27] MEDS: TAMSULOSIN 0.4 MG CAPSULE PO (08:30)
[2022-01-27] MEDS: ENOXAPARIN 40 MG/0.4 ML SYRINGE SUBCUT (08:31)
[2022-01-27] MEDS: NICOTINE 21 MG PATCH TOP (08:31)
[2022-01-27] MEDS: SODIUM CHLORIDE 0.9% FLUSH 10 ML IV ×2 (08:31→21:17)
--- NOTE | 2022-01-27 11:20 | DI.RAD.S_ITS ---
PROCEDURE: XR CHEST 1V INDICATIONS: worsened hypoxia TECHNIQUE: One view of the chest was acquired. COMPARISON: [facility], CT, CT ANGIO CHEST PE PROTOCOL, 01/24/2022, 23:02. [facility], CR, XR CHEST 1V, 01/24/2022, 15:32. FINDINGS: Surgical changes and devices: None. Lungs and pleura: Poorly defined bilateral infiltrates are seen, which are worse than on the prior examination, and overall most prominent within the left upper lobe laterally. Generalized interstitial prominence can be seen. On this semiupright portable chest examination, no large pneumothorax or large pleural effusions are seen. Mediastinum: Mediastinal contours appear normal. Heart size is normal. Bones and chest wall: No suspicious bony lesions. Overlying soft tissues appear unremarkable. IMPRESSION: Bilateral infiltrates, which are worst within the left upper lobe. Generalized interstitial prominence can be seen, which is suspicious for pulmonary edema. Dictated by: Yunior Groves M.D. on 01/27/2022 at 11:13 Approved by: Yunior Groves M.D. on 01/27/2022 at 11:15
[2022-01-27] MEDS: FUROSEMIDE 40 MG/4 ML VIAL IV (12:27)
--- NOTE | 2022-01-27 13:02 | DIET.PN1 ---
Dietary Progress Note Assessment: Met with Quique today. was not present. States that he has completed Dm ed at [facility] in the past with classes. He did not find this helpful. States he thinks his elevated BG is from eating high sugar foods/beverages, ie soda, chocolate milk, fudge bars. Also endorses some interest in a CGM. He is on >3 injections per day. Insurance should cover this. States he is interested in looking for a new provider. Unaware that has two PCP clinics. Furthermore, reports a lot of stress recently with 's diagnosis of breast cancer, two relatives have passed in last couple weeks, and overall feeling overwhelmed by current social stresses. Ht: 170.18 cm Wt: 97.522 kg BMI: 33.6 Last BM: 01/24/22 (01/24/22 18:33) MNA: 8 Jacobo Score: 19 Diet: 01/24/22 Breakfast Carbohydrate Consistent Diet Diet Modifications: Carbohydrate level: Medium (3 CHO) Nutrition Percent Meal Consumed 25% 01/27/22 09:00 Percent Meal Consumed 10 01/26/22 18:00 Percent Meal Consumed 2 01/26/22 13:00 Percent Meal Consumed 25% 01/26/22 08:50 Labs: RBC 3.88 X10^6/uL (4.5-5.9) L 01/27/22 06:47 Hgb 11.6 g/dL (13.5-17.5) L 01/27/22 06:47 Hct 33.5 % (41-53) L 01/27/22 06:47 Creatinine 1.18 mg/dL (0.66-1.25) 01/27/22 06:47 Hemoglobin A1c 12.2 % (4.0-6.0) H 01/25/22 06:50 Lactate 1.1 mmol/L (0.7-2.1) 01/24/22 15:35 Nutrition Diagnosis: altered nutrition related laboratory values (BG, A1c) r/t endocrine dysfunction, nutrition related knowledge deficit and medication mismanagement aeb pt admitted c BG >500, pt with A1c 12.2, reports difficulty managing diet and overall diabetes care Interventions: 1.Discussed PCP clinics and convenience for him given where he lives 2. Provided DSME resources and information to encourage OP DM care 3. Reviewed CGM trail possibility with DSME program at 4. Reviewed Plate Method Quique seems receptive. EER: 45-60g CHO per meal, 15-30g per snack Monitoring/Evaluations: rec OP DSME and nutrition therapy Electronically Signed by: Sheba Cullen 01/27/22 13:02 Clinical Dietitian [address] [address]
[2022-01-27] MEDS: polyethylene glycoL 3350 17 GM POWD.PACK PO (14:35)
[2022-01-27] MEDS: SENNOSIDES 8.6 MG TABLET PO ×2 (14:35→21:07)
--- NOTE | 2022-01-27 15:30 | PT.IIE ---
Current Diagnoses Pneumonia, unspecified organism (01/24/22) Surgical History (Last Reviewed 01/24/22 @ 21:36 by Tyrone Victoria MD) History of partial colectomy Medical History (Last Reviewed 01/24/22 @ 21:36 by Tyrone Victoria MD) Acid reflux Diabetes Hypertension Physical Therapy Inpatient Evaluation/Re-Eval M1 PT/OT-IP Prior Functional Status Start: 01/27/22 16:21 Freq: NEEDED Status: Active Protocol: Document 01/27/22 15:30 AB (Rec: 01/27/22 16:36 AB [email or web address]) Medical Review Prior Functional Status Medical History Reviewed Yes Communication able to make needs known Mobility and Gait pt stated that he is independent with all mobilities and ambulation without AD Social History Household Members spouse Living Arrangements RV Number of Floors (Floors) One Floor Number of Stairs To Enter/Railing? 4 steps L rail ascending Home Environment Walk in Shower Home Equipment Hand Held Shower,Grab Bars In Shower Additional Social History Comment pt and spouse's RV located in the same property as spouse's step dad; stated that spouse's brother staying at step dad's house at this time and can assist them if needed. pt stated that spouse will start radiation tx for breast CA next week pt stated that a FWW will not fit in the RV; has access to a SPC M2 PT-IP Current Condition Start: 01/27/22 16:21 Freq: NEEDED Status: Active Protocol: Document 01/27/22 15:30 AB (Rec: 01/27/22 16:36 AB [email or web address]) Physical Therapy Current Condition Current Condition Evaluation Date 01/27/22 Treatment Diagnosis PNA; urinary retention; hydronephrosis; difficulty in walking Onset Date 01/24/22 M3 PT-IP Subjective Start: 01/27/22 16:21 Freq: NEEDED Status: Active Protocol: Document 01/27/22 15:30 AB (Rec: 01/27/22 16:36 AB [email or web address]) Subjective Physical Therapy Visit Type Type Initial Evaluation Visit Start Time 15:30 Visit Stop Time 16:18 Total Visit Minutes 48 Number of TIRE REPAIRMAN Visits 0 Physical Therapy Visit Comments Patient Comments agreeable to do PT Therapy Pain Assessment Pain When Pain Assessed At Rest Location Abdomen Intensity 6 M4 PT-IP Mobility and Gait Start: 10/06/22 16:21 Freq: NEEDED Status: Active Protocol: Document 01/27/22 15:30 AB (Rec: 01/27/22 16:36 AB [email or web address]) PT-Bed Mobility Assessment Supine to Sit Supine to Sit Standby Assistance,1 Person Assistance,Head of Bed Elevated PT-Transfer Assessment Sit to and From Stand Sit to and from Stand Minimal Assistance,Moderate Assistance,1 Person Assistance ,Use of Upper Extremities Equipment Transfer Assistive Device Gait Belt,Front Wheeled Walker Orthotic/Prosthetic Devices or Brace: No Transfers Transfer Destination Chair Transfer Technique Stand Step Pivot Transfer Ability Level of Assist Minimal Assistance,Moderate Assistance,1 Person Assistance ,Use of Upper Extremities Comments Mobility Comments BP in supine: 133/65 O2 sat with 5L/min O2: 90%. pt educated with deep breathing. pt is a mouth breather. completed supine to sit SBA with HOB elevated. pt used bed rail to assist. O2 sat checked: 88%. pt rested and cued for deep breathing. c/o initial dizziness but decreased. BP in sittin /64. O2 sat checked again: 94% . pt completed sit to stand min to mod A and step transfer to chair using FWW min to mod A and max cues. O2 sat checked: 97%. cued for deep breathing: O2 sat increased to 89-90%. rested for a few more minutes. agreed to ambulate. completed sit to stand min to mod A and ambulated ~ 10 ft using FWW min to mod A. needs chair follow. pt requested to sit down. o2 sat after ambulation : 88% but went up to 90% in ~ 5 sec. positioned pt on the chair. call light and table placed within reach. BP at end of tx session: 136/63 o2 sat: 94%. Gait Assessment Gait Gait Assistance Required: Minimum Assistance,Moderate Assistance Distance (Feet) 10 Able to Maintain Weight Bearing Status Yes During Gait Assistive Devices Assistive Device Gait Belt,Front Wheeled Walker Orthotic/Prosthetic Devices or Brace: No Gait Deviations General Gait Pattern Decreased Stride Length, Decreased Feet Clearance,Step- to Gait Factors Limiting Gait Function Factors Limiting Gait Function Decreased Activity Tolerance, Decreased Strength,Difficulty Following Directions,Limited Range of Motion,Pain,Poor Balance,Poor Safety Awareness, Respiratory Distress PT-Balance Assessment Sitting Balance and Reactions Static Sitting Balance Ability Normal Dynamic Sitting Balance Ability Good Standing Balance and Reactions Static Standing Balance Ability Fair Dynamic Standing Balance Ability Poor Device Used FWW M5 PT-IP Objective Assessments Start: 01/27/22 16:21 Freq: NEEDED Status: Active Protocol: Document 01/27/22 15:30 AB (Rec: 01/27/22 16:36 AB [email or web address]) Orientation Orientation/Cognition Level of Alertness Alert Orientation Name,Place,Situation Language Function Ability No Deficits Noted Safety Awareness Decreased Safety Awareness Memory Description Short Term Impaired Gross Range of Motion Lower Extremity ROM Assessment Within Functional Limits Strength Lower Extremity Strength Hip 4-/5 Knee 4-/5 Muscle Tone Muscle Tone WNL Yes M6 PT-IP Treatment Start: 01/27/22 16:21 Freq: NEEDED Status: Active Protocol: Document 01/27/22 15:30 AB (Rec: 01/27/22 16:36 AB [email or web address]) Physical Therapy Treatment Education Education Provided Safety M7 PT-IP Assessment and Plan Start: 01/27/22 16:21 Freq: NEEDED Status: Active Protocol: Document 01/27/22 15:30 AB (Rec: 01/27/22 16:36 AB [email or web address]) PT Summary Assessment and Plan Potential Rehabilitation Potential Fair Status of Condition at Evaluation Evolving Summary Impairments Pain,ROM,Strength,Balance, Coordination,Sensation,Tone, Cognition,Bed Mobility, Transfers,Gait,Activity Tolerance Assessment Summary pt requiring min to mod A with mobility using FWW and has decrease activity tolerance affecting independence. Pt using 5L/min O2 and O2 sat decreased to 87% with activity . pt stated that spouse will be able to assist him at home but spouse is scheduled to have radiation therapy next week. d/c plan depending on progress, but at this time will require SNF rehab. Goals Bed Mobility Goal Standby Assistance Transfer Goal Standby Assistance,Front Wheeled Walker Gait Goal Standby Assistance,Front Wheel Walker Gait Distance 100 Other Goals improve ambulation without AD/ least restrictive AD 150 ft SBA up/down 4 steps L rail ascending SBA Days to Meet Goals 10 Frequency of Treatment Frequency Of Treatment Once a Day Treatment Plan Physical Therapy Treatment Plan Bed Mobility Training,Transfer Training,Gait Training, Therapeutic Exercise,Balance Retraining,Discharge Planning, Hot or Cold Pack,Neuromuscular Re-ed,Coordination Retraining Precautions Other Precautions O2 sat Recommendations To Nursing Amount of Assist Needed 1 Person Assist Discharge Recommendations PT Discharge Recommendations SNF Rehab Equipment Needed for Home Before FWW if going home and not safe Discharge with SPC/without AD Transportation Needs at Discharge Wheelchair/Cabulance
[2022-01-27] MEDS: cefTRIAXone 1,000 MG in SODIUM CHLORIDE 0.9% 100 ML 200 MG IV (20:51)
[2022-01-27] MEDS: INSULIN GLARGINE 100 UNIT/ML 3ML PEN 40 UNIT SUBCUT (20:57)
[2022-01-27] MEDS: BUDESONIDE 0.5 MG/2 ML NEB INH (21:30)
[2022-01-28] VITALS (44 sets, daily range): BP systolic 113–159; BP diastolic 52–88; PULSE 81–96; RESP 18–32; TEMP 36.2–37.4; O2SAT 86–97
[2022-01-28 04:54] LABS: Add Manual Diff / Slide Review NO; Basophils Absolute Auto 0 /uL (0-100); Basophils Percent Auto 0.5 % (0-2); Eosinophils Absolute Auto 200 /uL (0-450); Eosinophils Percent Auto 2.4 % (2-4); Hematocrit 32.8 % (41-53); Hemoglobin 11.4 g/dL (13.5-17.5); Lymphocytes Absolute Auto 1100 /uL (1100-4500); Mean Corpuscular HGB Conc 34.7 % (30-36); Mean Corpuscular Hemoglobin 29.8 PG (26-34); Mean Corpuscular Volume 85.8 fL (80-100); Monocytes Absolute Auto 900 /uL (0-900); Monocytes Percent Auto 10.3 % (3-14); Neutrophils Absolute Auto 6800 /uL (1500-7000); Neutrophils Percent Auto 74.8 % (50-75); Platelet Count 197 X10^3/uL (150-400); Red Blood Cell Count 3.82 X10^6/uL (4.5-5.9); Red Cell Distribution Width 14.3 % (11.6-14.8)
[2022-01-28 05:01] LABS: Blood Urea Nitrogen 24 mg/dL (9-20); Calcium 8.4 mg/dL (8.4-10.2); Carbon Dioxide 23 mmol/L (22-32); Chloride 97 mmol/L (98-107); Estimated Glomerular Filt Rate > 60 mL/min (>60); Glucose 194 mg/dL (80-110); HEMOLYSIS < 15 (0-50); Potassium 3.9 mmol/L (3.4-5.1); Sodium 129 mmol/L (137-145)
[2022-01-28] MEDS: OXYCODONE IR 5 MG TABLET PO ×3 (05:54→18:44)
[2022-01-28] MEDS: ACETAMINOPHEN 325 MG TABLET 650 MG PO ×2 (05:55→15:18)
[2022-01-28] MEDS: ALBUTEROL/IPRATROPIUM 3 ML AMPUL INH (06:19)
--- NOTE | 2022-01-28 06:25 | PC.NURSE ---
Addendum entered by Suzy Sofia R.N. 01/28/22 06:30: Telemetry NSR 94 with a BBB. Original Note: End of shift note. Patient AAOX4, c/o LLQ abd pain, improved with oxycodone 5mg po and tylenol 650mg. This am O2 Sats 88% on 5L NC, notified IRA Johnston. Duo Neb treatment given and RT put patient on non-heated high flow NC 8L, O2 Sats increased to 92%.
--- NOTE | 2022-01-28 07:48 | PM.PN.1 ---
Subjective Subjective Date Patient Seen: 01/28/22 Time Patient Seen: 13:00 Interval history: Patient feels more alive today. Able to eat more as well. Had increased O2 requirement overnight up to 8L HFNC. Exam Vital Signs (past 8 hours): - 01/28/22 01:00 01/28/22 04:49 01/28/22 06:04 Temperature 98.3 F 98.5 F Pulse Rate 81 90 Respiratory Rate 18 18 Blood Pressure 113/52 L 144/68 H Pulse Oximetry 95 91 91 Oxygen Delivery Method Nasal Cannula Oxygen Flow Rate 5 5 6 01/28/22 06:19 Temperature Pulse Rate 90 Respiratory Rate 18 Blood Pressure Pulse Oximetry 91 Oxygen Delivery Method Nasal Cannula Oxygen Flow Rate 8 Fraction of Inspired Oxygen 40 Oxygen Delivery Method Nasal Cannula Oxygen Flow Rate 8 Narrative Exam Narrative: GEN: no acute distress, appears older than stated age HEENT: dry mucous membranes, poor dentition, PERRL NECK: trachea midline, no JVD PULM: poor air movement bilaterally, no wheezes, rhonchi, rales ABD: mildly distended, tender to lower abd with palpation, soft, no organomegaly, normal bowel sounds : blankenship in place EXT: warm and well perfused with no edema NEURO: sleepy, oriented, no focal deficits noted Objective Labs Result Diagrams: 01/28/22 04:32 01/28/22 04:32 Labs: Laboratory Results - last 24 hr 01/28/22 01/28/22 04:32 04:32 WBC 9.0 RBC 3.82 L Hgb 11.4 L Hct 32.8 L MCV 85.8 MCH 29.8 MCHC 34.7 RDW 14.3 Plt Count 197 Neut % (Auto) 74.8 Lymph % (Auto) 12.0 L [place] % (Auto) 10.3 Eos % (Auto) 2.4 Baso % (Auto) 0.5 Neut # (Auto) 6800 Lymph # (Auto) 1100 [place] # (Auto) 900 Eos # (Auto) 200 Baso # (Auto) 0 Sodium 129 L Potassium 3.9 Chloride 97 L Carbon Dioxide 23 BUN 24 H Creatinine 1.09 Estimated GFR > 60 BUN/Creatinine Ratio 22.0 Glucose 194 H Calcium 8.4 PFSH Medical History Acid reflux Diabetes Hypertension Surgical History History of partial colectomy Social History household members: spouse Smoking Status: Current every day smoker alcohol intake: current Assessment & Plan Assessment & Plan narrative: Mr. Foss is a 66M with PMH DM who presents with abdominal pain, shortness of breath, and urinary hesitancy found to have acute urinary retention and pneumonia with respiratory failure. 1. Acute hypoxemic respiratory failure secondary to worsening pneumonia -patient with o2 sats in the 80s on admission -white count elevated consistent with infection, procal of 1.69 -CTA chest 01/24 concerning for pneumonia with bilateral consolidations -repeat CTA chest on 01/28 with worsening bilateral pneumonia, O2 requirements increased to 8L -transferred to ICU due to increased O2 requirements -repeat COVID negative -appreciate tele-ICU consult -continue lasix 20 IV daily to maintain euvolemia 2. Abdominal pain, improving -suspect secondary to acute urinary retention vs pleuritic pain from PNA -CT abd showed bilateral hydronephrosis -expect symptoms to improve with further relief of obstruction -CT angio abd 01/28 with no source found of pain 3. Acute urinary retention secondary to likely BPH with outlet obstruction, improving -blankenship placed in ED with good urinary output -CT showed mild hydronephrosis -UA negative for infection -started tamsulosin during admission -may need to dc with blankenship and get outpatient voiding trial 4. Type 2 Diabetes on insulin, with hyperglycemia -prescribed 80U lantus daily at home, does not take regularly -continue 40U lantus daily with insulin sliding scale -a1c 12.2% -pipe organ installer consulted and provided education 5. Elevated troponin -patient with no chest pain or EKG changes -initial trop 0.039, then 0.038 -suspect secondary to demand from infection 6. Active smoker -encouraged cessation -nebs prn 7. Left upper lung abnormality -noted on chest xray -bilateral pneumonia on CTA chest but no upper lung issue 8. Renal cysts vs mass -seen incidentally on CT, possibly polycystic kidney disease -renal US shows large right cyst vs mass, recommend outpatient f/u CODE: Full Proxy: Nataly Foss I have utilized all available resources to reconcile the patient's home medications. Dispo: Pending workup of worsening PNA and O2 requirements. Time Spent With Patient Critical Care time: I spent a total of [] minutes of critical care time on this patient's care today; this time is exclusive of procedural time. Quality VTE Deep Vein Thrombosis/Pulmonary Embolism Present on Admission: No
--- NOTE | 2022-01-28 07:52 | DI.CT.S_ITS ---
PROCEDURE: CT ANGIO CHEST ABDOMEN PELVIS INDICATIONS: worsened hypoxia, lung infiltrates, abd pain TECHNIQUE: Precontrast 5 mm thick sections acquired from the lung apices to the iliac crests. After the administration of intravenous contrast, 2.5 mm thick sections again acquired from the lung apices to the iliac crests. Maximum intensity projection (MIP) oblique sagittal and coronal reformats were then acquired. For radiation dose reduction, the following was used: automated exposure control. COMPARISON: [facility], MR, ANGIO ABDOMEN, 04/28/2014, 15:22. [facility], CT, ABD/PELVIS W/CON (PNL), 03/14/2014, 11:19. [facility], US, US RENAL COMPLETE, 01/25/2022, 8:05. [facility], CT, CT ANGIO CHEST PE PROTOCOL, 01/24/2022, 23:02. [facility], CT, CT ABDOMEN PELVIS W CON, 01/24/2022, 16:26. FINDINGS: Image quality: Excellent. AORTA: No aortic syndrome. No aortic dissection. No aneurysm. Mild calcified plaque at the aortic arch. CHEST: Lungs and pleura: Bilateral ground-glass and consolidative opacity, increased. Bibasilar consolidations. Emphysematous changes present. Small bilateral pleural effusions, increased. No pneumothorax. Central airways are clear. Mediastinum: Heart size is normal. Mild coronary plaque. No pericardial effusion. Prevascular node measuring 1 cm, (5/51), unchanged. Additional shotty mediastinal lymph nodes. Central pulmonary arteries are normal in size. No central pulmonary embolism. Esophagus is normal in caliber. Small hiatal hernias. Bones and chest wall: No axillary adenopathy by size criteria. Thyroid gland is unremarkable. No suspicious bony lesions. No vertebral body compression fractures. ABDOMEN: Vasculature: Celiac trunk and mesenteric arteries are patent. Renal arteries are also patent. Clip or vascular coil in the region of the left gonadal vein. Solid organs: Liver is normal in size and enhancement. Gallbladder is absent . Biliary system is non dilated. Pancreas enhances normally. Spleen is normal in size and enhancement. No adrenal nodules. Both kidneys are normal in size and enhancement, without hydronephrosis. Small nonobstructing kidney stones bilaterally. Small benign low-density renal cysts bilaterally. There is a cyst in the left kidney with a thin septation with punctate calcification. Minimally complicated. There is a cyst in the mid right kidney measuring 2.8 cm, (7/117) and 40 Hounsfield units. (Remotely this cyst measured 1.5 cm in 2014). No enhancement demonstrated. Peritoneum and bowel: No free fluid or air. Bowel loops are normal in caliber and wall thickness. The appendix is absent. Nodes and vessels: No retroperitoneal or mesenteric adenopathy by size criteria. Inferior vena cava is normal in morphology. Miscellaneous: No ventral hernias. Ventral abdominal wall scar. Mild stranding at the left abdominal wall subcutaneous fat, unchanged. PELVIS: Genitourinary: Bladder is decompressed with Eubanks catheter. The bladder wall is thickened. Prostate gland is enlarged. Miscellaneous: No inguinal hernias or adenopathy. No ventral hernias. Bones: No suspicious bony lesions. Mild scoliosis. Multilevel DDD. No vertebral body compression fractures. Right L5 pars defect. IMPRESSION: 1. Increased bilateral ground-glass and consolidative opacities. This is most consistent with worsening pneumonia. 2. Small bilateral pleural effusions, increased. 3. No aortic dissection. No central pulmonary embolism. 4. Bladder is decompressed with Eubanks catheter. The bladder wall appears thickened. This could be seen in cystitis. 5. No small bowel obstruction. No free fluid. 6. Complicated cyst in the right kidney measuring 2.8 cm. No enhancement appreciated. This could be more definitively characterized with renal MRI. Recommend continued imaging surveillance. Dictated by: Bassem Gan M.D. on 01/28/2022 at 9:03 Approved by: Bassem Gan M.D. on 01/28/2022 at 9:33
[2022-01-28] MEDS: INSULIN LISPRO 100 UNIT/ML 3ML VIAL SUBCUT ×4 (07:57→21:04)
[2022-01-28] MEDS: ENOXAPARIN 40 MG/0.4 ML SYRINGE SUBCUT (07:58)
[2022-01-28] MEDS: SENNOSIDES 8.6 MG TABLET PO ×2 (07:59→21:03)
[2022-01-28] MEDS: polyethylene glycoL 3350 17 GM POWD.PACK PO (07:59)
[2022-01-28] MEDS: NICOTINE 21 MG PATCH TOP (07:59)
[2022-01-28] MEDS: TAMSULOSIN 0.4 MG CAPSULE PO (07:59)
[2022-01-28] MEDS: PANTOPRAZOLE DR 40 MG TABLET PO (08:00)
[2022-01-28 08:21] LABS: NT-proBNP (BNP-Adult 18+) 95 pg/mL (<125)
[2022-01-28] MEDS: SODIUM CHLORIDE 0.9% FLUSH 10 ML IV ×2 (08:58→21:04)
[2022-01-28] MEDS: BUDESONIDE 0.5 MG/2 ML NEB INH ×2 (08:58→19:07)
--- NOTE | 2022-01-28 10:23 | CM.DPC ---
DCP Cont: Discussed patient during team rounds this morning. Patient is now on 8 liters of oxygen. Hospitalist has indicated that he plans on doing a CT scan today, and will swab patient for COVID. P: DCP to continue to monitor patient closely for any needs. It is noted that patient resides with spouse in , is independent at his baseline. Cassandra Garcia RN/Kettle Cleaner
[2022-01-28 10:32] LABS: COVID19 -Nasal RAPID Negative (Negative)
[2022-01-28] MEDS: CEFEPIME 2 GM in SODIUM CHLORIDE 0.9% 100 ML IV ×2 (10:50→21:47)
--- NOTE | 2022-01-28 10:50 | PT.IPTN ---
Current Diagnoses Pneumonia, unspecified organism (01/24/22) Physical Therapy Treatment Note M2 PT-IP Current Condition Start: 01/27/22 16:21 Freq: NEEDED Status: Active Protocol: Document 01/27/22 15:30 AB (Rec: 01/27/22 16:36 AB [email or web address]) Physical Therapy Current Condition Current Condition Evaluation Date 01/27/22 Treatment Diagnosis PNA; urinary retention; hydronephrosis; difficulty in walking Onset Date 01/24/22 M3 PT-IP Subjective Start: 01/27/22 16:21 Freq: NEEDED Status: Active Protocol: Document 01/28/22 10:50 AB (Rec: 01/28/22 11:45 AB [email or web address]) Subjective Physical Therapy Visit Type Type Treatment Note Visit Start Time 10:50 Visit Stop Time 11:13 Total Visit Minutes 23 Number of MOLDED GOODS INSPECTOR TRIMMER Visits 0 Physical Therapy Visit Comments Patient Comments agreeable to do PT M4 PT-IP Mobility and Gait Start: 01/27/22 16:21 Freq: NEEDED Status: Active Protocol: Document 01/28/22 10:50 AB (Rec: 01/28/22 11:45 AB [email or web address]) PT-Bed Mobility Assessment Supine to Sit Supine to Sit Standby Assistance PT-Transfer Assessment Sit to and From Stand Sit to and from Stand Moderate Assistance,1 Person Assistance,Use of Upper Extremities Equipment Transfer Assistive Device Gait Belt,Front Wheeled Walker Orthotic/Prosthetic Devices or Brace: No Transfers Transfer Technique ambulated Transfer Ability Level of Assist Moderate Assistance,1 Person Assistance,Use of Upper Extremities Comments Mobility Comments pt on 5L/min O2 and O2 sat: 90 %. completed supine to sit SBA . able to sit on EOB SBA. cued for deep breathing. O2 sat 91%. pt completed sit to stand mod A and cues and ambulated 5 ft forward and then backwards to chair using fWW mod A and cues. presents with unsteady slow paced gait with decrease LE elevation. Pt also is inconsistent with answering questions and following instructions at occasionally needs increase time to follow directions. pt sat on chair. O2 sat after ambulation: 82%. cued for deep breathing and O2 sat increased to 90-93% after 3 deep breaths. positioned pt on the chair. call light and table placed within reach. per nurse, pt will be transferring to ICU. Per hospitalist, pt transferring to ICU due to needed pulmonary doctor consult. Gait Assessment Gait Gait Assistance Required: Moderate Assistance Distance (Feet) 10 Able to Maintain Weight Bearing Status Yes During Gait Assistive Devices Assistive Device Gait Belt,Front Wheeled Walker Orthotic/Prosthetic Devices or Brace: No Gait Deviations General Gait Pattern Decreased Stride Length, Decreased Feet Clearance,Step- to Gait Factors Limiting Gait Function Factors Limiting Gait Function Decreased Activity Tolerance, Decreased Strength,Difficulty Following Directions,Poor Balance,Poor Safety Awareness, Respiratory Distress M5 PT-IP Objective Assessments Start: 01/27/22 16:21 Freq: NEEDED Status: Active Protocol: Document 01/27/22 15:30 AB (Rec: 01/27/22 16:36 AB [email or web address]) Orientation Orientation/Cognition Level of Alertness Alert Orientation Name,Place,Situation Language Function Ability No Deficits Noted Safety Awareness Decreased Safety Awareness Memory Description Short Term Impaired Gross Range of Motion Lower Extremity ROM Assessment Within Functional Limits Strength Lower Extremity Strength Hip 4-/5 Knee 4-/5 Muscle Tone Muscle Tone WNL Yes M6 PT-IP Treatment Start: 01/27/22 16:21 Freq: NEEDED Status: Active Protocol: Document 01/28/22 10:50 AB (Rec: 01/28/22 11:45 AB [id number]) Physical Therapy Treatment Education Education Provided Safety M7 PT-IP Assessment and Plan Start: 01/27/22 16:21 Freq: NEEDED Status: Active Protocol: Document 01/28/22 10:50 AB (Rec: 01/28/22 11:45 AB [id number]) PT Summary Assessment and Plan Potential Rehabilitation Potential Fair Summary Impairments Pain,ROM,Strength,Balance, Coordination,Sensation,Tone, Cognition,Bed Mobility, Transfers,Gait,Activity Tolerance Progress Towards Goals Slow Progress due to Medical Issues,Slow Progress due to Activity Tolerance Assessment Summary pt slowly improving with mobility using FWW but continues to have decrease activity tolerance with O2 sat decreasiing to 82% after ~ 10 ft of ambulation. will continue to assess progress but at this time, pt may require SNF rehab. Goals Bed Mobility Goal Standby Assistance Transfer Goal Standby Assistance,Front Wheeled Walker Gait Goal Standby Assistance,Front Wheel Walker Gait Distance 100 Other Goals improve ambulation without AD/ least restrictive AD 150 ft SBA up/down 4 steps L rail ascending SBA Days to Meet Goals 10 Frequency of Treatment Frequency Of Treatment Once a Day Treatment Plan Physical Therapy Treatment Plan Bed Mobility Training,Transfer Training,Gait Training, Therapeutic Exercise,Balance Retraining,Discharge Planning, Hot or Cold Pack,Neuromuscular Re-ed,Coordination Retraining Precautions Other Precautions O2 sat Recommendations To Nursing Amount of Assist Needed 1 Person Assist Discharge Recommendations PT Discharge Recommendations SNF Rehab Equipment Needed for Home Before FWW if going home and not safe Discharge with SPC/without AD Transportation Needs at Discharge Wheelchair/Cabulance
--- NOTE | 2022-01-28 10:55 | P.TELICUCN_ITS ---
History of Present Illness Consult details IF CAMERA ACTIVATED, patient seen via real-time interactive audiovisual communication: Camera activated Date Patient Seen: 01/28/22 Chief complaint: Stomach issues high blood pressure high blood suga Consent obtained for tele-picker box operator care: Yes Patient Location: ICU Provider location (State): [place] Other participants/roles: hospitalist, KOBE Narrative: HPI: 66 yo man with PMH of T2DM, HTN, asthma, vasculitis, Fibromyalgia and GERD presented 01/24/22 with abd pain x 2 weeks, dyspnea x 4 weeks, fatigue and hyperg lycemia. 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 He was treated with steroids for about a year but none since. In ER patient found to be febrile and hypoxic (pox 80's on RA and 95% on 2L nc). CTA of chest neg for PE?but did showv bilateral confluent areas of consolidation as well as GGO with septal thickenin, findings most likely representing PNA. CT of abd/pelvis showed bladder distentionwith mild B/L hydronephrosis, B/L renal cysts, and BPH. WBC 15.9 and Procal 1.69. COVID test neg. U/a neg. Pt. started on Ceftriaxone and Azithromycin for PNA. Eubanks placed with sig urine output and improvement in abd pain. Fever and WBC improved however patient's oxygen requirement increased from 0-2 L to 5 L yesterday. Despite getting lasix and diuresing out 1L net neg, patient's hypoxemia worsened and today Pt was transferred to ICU as he required HFNC (currentlhy at 8L FIO2 40%). Repeat CTA of chest/abd/pelvis done today and it showed worsening B/L ground-glass and consolidative opacities whichi s most consistent with worsneing PNA. Antibiotics broadened to Vancomycin and Cefepime. Repeat COVID test neg. ROS: Patient denies any cough, joint swelling, or new joint pain. He says he has on and off joint pain from his fibromyalgia. No new skin rash, no diarrhea. + nausea but that has improved recently. PFSH Medical History Acid reflux Diabetes Hypertension Surgical History History of partial colectomy Social History household members: spouse Smoking Status: Current every day smoker alcohol intake: current Comment: Family history: + family history of DM but otherwise no family history of any autoimmune disease Current Medications Current Medications Medications: Home Medications albuterol sulfate 90 mcg/actuation aerosol inhaler (Ventolin HFA) 2 puff inhalation BID 01/24/22 [History Confirmed 01/24/22] cyclobenzaprine 10 mg tablet 10 mg PO TID 01/24/22 [History Confirmed 01/24/22] insulin glargine 100 unit/mL (3 mL) subcutaneous pen (Lantus Solostar U-100 Insulin) 80 unit SUBCUT DAILY 01/24/22 [History Confirmed 01/24/22] insulin lispro 100 unit/mL subcutaneous cartridge (Humalog U-100 Insulin) See Rx Instructions .Route .COMPLEX 01/24/22 [History Confirmed 01/24/22] Visit Medications (administered) Generic Name Dose Route Start Last Admin Trade Name Freq PRN Reason Stop Dose Admin Acetaminophen 650 mg 01/25/22 02:00 01/28/22 05:55 Acetaminophen 325 Mg Tablet PO 650 mg Q4H PRN Administration Fever/Mild Pain (1-3) Albuterol/Ipratropium 3 ml 01/24/22 21:25 01/28/22 06:19 Albuterol/Ipratropium 3 Ml Ampul INH 3 ml RTQ6HR PRN Administration Shortness Of Breath Budesonide 0.5 mg 01/26/22 20:00 01/28/22 08:58 Budesonide 0.5 Mg/2 Ml Neb INH 0.5 mg RTBID CASI Administration Enoxaparin Sodium 40 mg 01/25/22 09:00 01/28/22 07:58 Enoxaparin 40 Mg/0.4 Ml Syringe SUBCUT 40 mg DAILY CASI Administration Cefepime HCl 2 gm/ Sodium 100 mls @ 200 mls/hr 01/28/22 10:00 01/28/22 10:50 Chloride IV 200 mls/hr Q12H CASI Administration Insulin Glargine 40 unit 01/25/22 21:00 01/27/22 20:57 Insulin Glargine 100 Unit/Ml 3ml Pen SUBCUT 40 unit BEDTIME CASI Administration Insulin Human Lispro 0 unit 01/24/22 21:00 01/28/22 07:57 Insulin Lispro 100 Unit/Ml 3ml Vial SUBCUT 4 unit ACHS CASI Administration Protocol Nicotine 21 mg 01/26/22 18:15 01/28/22 07:59 Nicotine 21 Mg Patch TOP 21 mg DAILY CASI Administration Ondansetron HCl 4 mg 01/24/22 20:02 01/27/22 02:41 Ondansetron 4 Mg/2 Ml Inj IV 4 mg Q8HR PRN Administration Nausea And Vomiting Oxycodone HCl 5 mg 01/26/22 13:47 01/28/22 05:54 Oxycodone Ir 5 Mg Tablet PO 5 mg Q4HR PRN Administration Pain, Moderate (4-6) Pantoprazole Sodium 40 mg 01/25/22 15:15 01/28/22 08:[address] 40 Mg Tablet PO 40 mg 0700 CASI Administration Polyethylene Glycol 17 gm 01/27/22 13:45 01/28/22 07:59 Polyethylene Glycol 3350 17 Gm Powd.Pack PO 17 gm DAILY CASI Administration Sennosides 8.6 mg 01/27/22 13:45 01/28/22 07:59 Sennosides 8.6 Mg Tablet PO 8.6 mg BID CASI Administration Sodium Chloride 10 ml 01/25/22 21:00 01/28/22 08:58 Sodium Chloride 0.9% Flush IV 10 ml BID CASI Administration Tamsulosin HCl 0.4 mg 01/25/22 09:00 01/28/22 07:59 Tamsulosin 0.4 Mg Capsule PO 0.4 mg DAILY CASI Administration Exam Vital Signs (past 8 hours): - 01/28/22 04:49 01/28/22 06:04 01/28/22 06:19 Temperature 98.5 F Pulse Rate 90 90 Respiratory Rate 18 18 Blood Pressure 144/68 H Pulse Oximetry 91 91 91 Oxygen Delivery Method Nasal Cannula Nasal Cannula Oxygen Flow Rate 5 6 8 01/28/22 07:55 01/28/22 08:58 01/28/22 07:00 Temperature 97.1 F L Pulse Rate 95 H 84 Respiratory Rate 20 18 Blood Pressure 136/72 Pulse Oximetry 97 94 94 Oxygen Delivery Method High Flow Nasal Cannula Room Air Oxygen Flow Rate 8 8 Fraction of Inspired Oxygen 40 Oxygen Delivery Method High Flow Nasal Cannula Oxygen Flow Rate 8 Narrative Exam Narrative: Patient seen through 2 way audio-visual system. He is alert, breathing comfortbaly on 5L nc with Pox 93%, conversant, and shows no signs of confusion or memory problems Objective Labs Result Diagrams: 01/28/22 04:32 01/28/22 04:32 Labs: Laboratory Results - last 24 hr 01/28/22 01/28/22 01/28/22 04:32 04:32 04:32 WBC 9.0 RBC 3.82 L Hgb 11.4 L Hct 32.8 L MCV 85.8 MCH 29.8 MCHC 34.7 RDW 14.3 Plt Count 197 Neut % (Auto) 74.8 Lymph % (Auto) 12.0 L [place] % (Auto) 10.3 Eos % (Auto) 2.4 Baso % (Auto) 0.5 Neut # (Auto) 6800 Lymph # (Auto) 1100 [place] # (Auto) 900 Eos # (Auto) 200 Baso # (Auto) 0 Sodium 129 L Potassium 3.9 Chloride 97 L Carbon Dioxide 23 BUN 24 H Creatinine 1.09 Estimated GFR > 60 BUN/Creatinine Ratio 22.0 Glucose 194 H Calcium 8.4 NT-Pro-B Natriuret Pep 95 SARS-CoV-2 (PCR) 01/28/22 10:00 WBC RBC Hgb Hct MCV MCH MCHC RDW Plt Count Neut % (Auto) Lymph % (Auto) [place] % (Auto) Eos % (Auto) Baso % (Auto) Neut # (Auto) Lymph # (Auto) [place] # (Auto) Eos # (Auto) Baso # (Auto) Sodium Potassium Chloride Carbon Dioxide BUN Creatinine Estimated GFR BUN/Creatinine Ratio Glucose Calcium NT-Pro-B Natriuret Pep SARS-CoV-2 (PCR) Negative Assessment & Plan Assessment & Plan narrative: Assessment: Acute hypoxic respiratory failure B/L pulmonary infiltrates and GGO h/o of vasculitis DM Discussion: 66 yo man with PMH Of vasculitis who presented with fever, leukoctyosis, and B/L pulmonary infiltrates was started on Ceftriaxone and azithromycin. Patient's fever and leukocytosis improved but his hypxoemia and chest CT findings between 01/24 and 01/28 have worsened. Some of the dense infiltlrates seen on 01/24 have improved but there is increased GGO. Highest on differential is some sort of inflammatory/autoimmune process such as vasculitis, Cryptogenic organizing PNA, or eosinophilic PNA. Recommendations -agree with broadening antibiotics -f/u on cultures -do autoimmune workup by checking ZARINA, ANCA, anti-GBM, Complement levels, anti- double stranded DNA antibodies -discussed with patient the option of doing a trial of prednisone but since patient reports that prednisone does not mix well with him as it tends to make him angry and since at this time he is breathing comfortably on 5L nc, we have opted to hold off on steroids for now pending results of blood work -if patient worsens significantly, will have to consider steroids, bronchoscopy, and lung biopsy. Discussed my assessment and recommendations with patient and hospitalist Dr. Wilkinson CCT spent 70 min Time Spent With Patient Critical Care time: I spent a total of [] minutes of critical care time on this patient's care today; this time is exclusive of procedural time.
--- NOTE | 2022-01-28 11:52 | PC.NURSE ---
Pt is A&OX3, VSS afebrile, initially on hi anusha- 8LNC, however he is able to wean down to 5 L NC after nebulizer administered by RT. He is taken for CT of his chest this a.m. He is retested for COVID, results are negative. He is able to eat about half of breakfast, BG this a.m. 216 by fingerstick. He is able to ambulate with SBA but feels extremely fatigued and denies wanting to shower this a.m. He reports pain increased to abdomen 4-6 /10 on the L side. He reports passing gas but no BM for days. He is given scheduled laxatives. Abdomen in soft with active bowel tones. He reports pain to Left side upon inspiration. MD at bedside this a.m. explaining to patient that he will be transferred to ICU for pulmonolgy consult. notifed and report given to [employer]CH[employer].
[2022-01-28] MEDS: VANCOMYCIN 2,000 MG/400 ML PIGGYBACK 200 MG IV (12:12)
--- NOTE | 2022-01-28 20:53 | PM.ICURNDS ---
- :: This patient was seen via real time interactive two-way audiovisual telecommunication. patietn on high flow NC, but requirements seem to be decreasing. other VS stable. would consider adding HIV test and PCP smear given intralobular spetal thickening, though he is imrproving, the worsening imaging leads to beleaive pcp remains on the differential
[2022-01-28] MEDS: INSULIN GLARGINE 100 UNIT/ML 3ML PEN 40 UNIT SUBCUT (21:04)
[2022-01-29] VITALS (71 sets, daily range): BP systolic 131–158; BP diastolic 62–100; PULSE 69–101; RESP 11–41; TEMP 36.5–37.7; O2SAT 87–97
[2022-01-29] MEDS: OXYCODONE IR 5 MG TABLET PO ×4 (01:30→19:55)
[2022-01-29 05:31] LABS: Complement C3 175 mg/dL (82-167)
[2022-01-29] MEDS: PANTOPRAZOLE DR 40 MG TABLET PO (05:59)
[2022-01-29] MEDS: BUDESONIDE 0.5 MG/2 ML NEB INH ×2 (07:33→19:44)
--- NOTE | 2022-01-29 08:00 | PM.PN.EICU ---
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 Pt. started on Ceftriaxone and Azithromycin for PNA and fever and leukocytosis improved but oxygen requirement increased 01/27 despite trial of diuresis. Pt. transferred to ICU for HFNC (5L 40% FIO2). Repeat CT showed some improvement in old consolidations but worsening of GGO and infiltrates in other areas of the lung. 01/28: Abx broadened to Cefepime and vancomycin. Blood work sent off for autoimmune processes Recent events: -patient's respiratory status remains stable and his oxygen requirement is unchanged at 5L HFNC Fio2 40% Current Medications Current Medications Medications: Home Medications albuterol sulfate 90 mcg/actuation aerosol inhaler (Ventolin HFA) 2 puff inhalation BID 01/24/22 [History Confirmed 01/24/22] cyclobenzaprine 10 mg tablet 10 mg PO TID 01/24/22 [History Confirmed 01/24/22] insulin glargine 100 unit/mL (3 mL) subcutaneous pen (Lantus Solostar U-100 Insulin) 80 unit SUBCUT DAILY 01/24/22 [History Confirmed 01/24/22] insulin lispro 100 unit/mL subcutaneous cartridge (Humalog U-100 Insulin) See Rx Instructions .Route .COMPLEX 01/24/22 [History Confirmed 01/24/22] Visit Medications (administered) Generic Name Dose Route Start Last Admin Trade Name Freq PRN Reason Stop Dose Admin Acetaminophen 650 mg 01/25/22 02:00 01/28/22 15:18 Acetaminophen 325 Mg Tablet PO 650 mg Q4H PRN Administration Fever/Mild Pain (1-3) Albuterol/Ipratropium 3 ml 01/24/22 21:25 01/28/22 06:19 Albuterol/Ipratropium 3 Ml Ampul INH 3 ml RTQ6HR PRN Administration Shortness Of Breath Budesonide 0.5 mg 01/26/22 20:00 01/29/22 07:33 Budesonide 0.5 Mg/2 Ml Neb INH 0.5 mg RTBID CASI Administration Enoxaparin Sodium 40 mg 01/25/22 09:00 01/28/22 07:58 Enoxaparin 40 Mg/0.4 Ml Syringe SUBCUT 40 mg DAILY CASI Administration Cefepime HCl 2 gm/ Sodium 100 mls @ 200 mls/hr 01/28/22 10:00 01/28/22 22:40 Chloride IV Infused Q12H CASI Infusion Insulin Glargine 40 unit 01/25/22 21:00 01/28/22 21:04 Insulin Glargine 100 Unit/Ml 3ml Pen SUBCUT 40 unit BEDTIME CASI Administration Insulin Human Lispro 0 unit 01/24/22 21:00 01/28/22 21:04 Insulin Lispro 100 Unit/Ml 3ml Vial SUBCUT 2 unit ACHS CASI Administration Protocol Nicotine 21 mg 01/26/22 18:15 01/28/22 07:59 Nicotine 21 Mg Patch TOP 21 mg DAILY CASI Administration Ondansetron HCl 4 mg 01/24/22 20:02 01/27/22 02:41 Ondansetron 4 Mg/2 Ml Inj IV 4 mg Q8HR PRN Administration Nausea And Vomiting Oxycodone HCl 5 mg 01/26/22 13:47 01/29/22 05:58 Oxycodone Ir 5 Mg Tablet PO 5 mg Q4HR PRN Administration Pain, Moderate (4-6) Pantoprazole Sodium 40 mg 01/25/22 15:15 01/29/22 05:[address] 40 Mg Tablet PO 40 mg 0700 CASI Administration Polyethylene Glycol 17 gm 01/27/22 13:45 01/28/22 07:59 Polyethylene Glycol 3350 17 Gm Powd.Pack PO 17 gm DAILY CASI Administration Sennosides 8.6 mg 01/27/22 13:45 01/28/22 21:03 Sennosides 8.6 Mg Tablet PO 8.6 mg BID CASI Administration Sodium Chloride 10 ml 01/25/22 21:00 01/28/22 21:04 Sodium Chloride 0.9% Flush IV 10 ml BID CASI Administration Tamsulosin HCl 0.4 mg 01/25/22 09:00 01/28/22 07:59 Tamsulosin 0.4 Mg Capsule PO 0.4 mg DAILY CASI Administration Objective Labs Result Diagrams: 01/28/22 04:32 01/28/22 04:32 Labs: Laboratory Results - last 24 hr 01/28/22 01/28/22 01/28/22 04:32 10:00 11:40 NT-Pro-B Natriuret Pep 95 Nasal Screen MRSA (PCR) Negative for mrsa Complement C3 Complement C4 SARS-CoV-2 (PCR) Negative 01/28/22 14:38 NT-Pro-B Natriuret Pep Nasal Screen MRSA (PCR) Complement C3 175 H Complement C4 58 H SARS-CoV-2 (PCR) Exam Vital Signs (past 8 hours): - 01/29/22 01:00 01/29/22 02:00 01/29/22 03:00 Temperature Pulse Rate 90 90 90 Respiratory Rate 19 26 H 25 H Blood Pressure 140/100 H 136/65 158/73 H Pulse Oximetry 93 95 96 Oxygen Delivery Method Oxygen Flow Rate 5 5 5 Fraction of Inspired Oxygen 01/29/22 04:00 01/29/22 05:00 01/29/22 06:00 Temperature 98.9 F Pulse Rate 90 88 94 H Respiratory Rate 24 25 H 20 Blood Pressure 131/67 139/67 137/62 Pulse Oximetry 94 93 93 Oxygen Delivery Method Oxygen Flow Rate 5 5 Fraction of Inspired Oxygen 01/29/22 06:00 01/29/22 07:33 01/29/22 07:00 Temperature Pulse Rate Respiratory Rate Blood Pressure 142/68 H Pulse Oximetry 93 Oxygen Delivery Method High Flow Nasal Cannula High Flow Nasal Cannula Oxygen Flow Rate 5 Fraction of Inspired Oxygen 40 01/29/22 07:00 01/29/22 07:00 Temperature 97.7 F Pulse Rate 89 Respiratory Rate 24 Blood Pressure Pulse Oximetry 91 93 Oxygen Delivery Method High Flow Nasal Cannula Oxygen Flow Rate 5 5 Fraction of Inspired Oxygen Fraction of Inspired Oxygen 40 SaO2/FiO2 Ratio 232 Oxygen Delivery Method High Flow Nasal Cannula Oxygen Flow Rate 5 Narrative Exam Narrative: patient seen through two way audio visual system, he is alert and answering questions appropriately. He is breahting comfortably on 5L nc Quality TeleICU VTE Deep Vein Thrombosis/Pulmonary Embolism Present on Admission: No Assessment & Plan Assessment & Plan narrative: Assessment & Plan narrative: Assessment: Acute hypoxic respiratory failure B/L pulmonary infiltrates and GGO h/o of vasculitis (microscopic polyangitis?) DM mild hyponatremia Discussion:? 66 yo man with PMH Of vasculitis who presented with fever, leukoctyosis, and B/L pulmonary infiltrates was started on Ceftriaxone and azithromycin.? Patient's fever and leukocytosis improved but his hypxoemia and chest CT findings between 01/24 and 01/28 have worsened.? Some of the dense infiltlrates seen on 01/24 have improved but there is increased GGO.? Highest on differential is some sort of inflammatory/autoimmune process such as vasculitis, Cryptogenic organizing PNA, or eosinophilic PNA. Recommendations -continue Cefepime and VAncomycin -f/u on cultures -f/u on autoimmune workup (including ZARINA, ANCA, anti-GBM, Complement levels, anti-double stranded DNA antibodies, cryoglobulinss) -check HIV - PCP smear -discussed with patient the option of doing a trial of prednisone but since patient reports that prednisone does not mix well with him as it tends to make him angry we have opted to hold off on steroids for now pending results of blood work -if patient worsens significantly, will have to consider steroids, bronchoscopy, and VATS lung biopsy - free water restriction for mild hyponatremia time spent 35 min Time Spent With Patient Critical Care time: I spent a total of [] minutes of critical care time on this patient's care today; this time is exclusive of procedural time.
[2022-01-29] MEDS: INSULIN LISPRO 100 UNIT/ML 3ML VIAL SUBCUT ×4 (08:20→20:36)
[2022-01-29 08:28] LABS: Add Manual Diff / Slide Review NO; Basophils Absolute Auto 100 /uL (0-100); Basophils Percent Auto 0.6 % (0-2); Eosinophils Absolute Auto 300 /uL (0-450); Eosinophils Percent Auto 2.8 % (2-4); Hematocrit 32.4 % (41-53); Lymphocytes Absolute Auto 800 /uL (1100-4500); Lymphocytes Percent Auto 8.9 % (25-40); Mean Corpuscular HGB Conc 34.1 % (30-36); Mean Corpuscular Hemoglobin 29.8 PG (26-34); Mean Corpuscular Volume 87.2 fL (80-100); Monocytes Absolute Auto 1100 /uL (0-900); Monocytes Percent Auto 12.1 % (3-14); Neutrophils Absolute Auto 7100 /uL (1500-7000); Neutrophils Percent Auto 75.6 % (50-75); Platelet Count 267 X10^3/uL (150-400); Red Blood Cell Count 3.71 X10^6/uL (4.5-5.9); White Blood Cell Count 9.4 X10^3/uL (4.5-11.0)
[2022-01-29 08:32] LABS: BUN Creatinine Ratio 23.2 (6-22); Blood Urea Nitrogen 26 mg/dL (9-20); Calcium 8.9 mg/dL (8.4-10.2); Carbon Dioxide 24 mmol/L (22-32); Chloride 99 mmol/L (98-107); Estimated Glomerular Filt Rate > 60 mL/min (>60); Glucose 178 mg/dL (80-110); HEMOLYSIS < 15 (0-50); Sodium 132 mmol/L (137-145)
[2022-01-29] MEDS: CEFEPIME 2 GM in SODIUM CHLORIDE 0.9% 100 ML IV ×2 (09:08→21:35)
[2022-01-29] MEDS: ENOXAPARIN 40 MG/0.4 ML SYRINGE SUBCUT (09:09)
[2022-01-29] MEDS: TAMSULOSIN 0.4 MG CAPSULE PO (09:09)
[2022-01-29] MEDS: SENNOSIDES 8.6 MG TABLET PO ×2 (09:09→20:35)
[2022-01-29] MEDS: FUROSEMIDE 20 MG/2 ML VIAL IV ×2 (09:09→20:35)
[2022-01-29 11:00] LABS: Lactate Dehydrogenase 719 U/L (313-618)
--- NOTE | 2022-01-29 11:40 | PT.IPTN ---
Current Diagnoses Pneumonia, unspecified organism (01/24/22) Physical Therapy Treatment Note M2 PT-IP Current Condition Start: 01/27/22 16:21 Freq: NEEDED Status: Active Protocol: Document 01/27/22 15:30 AB (Rec: 01/27/22 16:36 AB [id number]) Physical Therapy Current Condition Current Condition Evaluation Date 01/27/22 Treatment Diagnosis PNA; urinary retention; hydronephrosis; difficulty in walking Onset Date 01/24/22 M3 PT-IP Subjective Start: 01/27/22 16:21 Freq: NEEDED Status: Active Protocol: Document 01/29/22 11:40 AB (Rec: 01/29/22 13:10 AB [email or web address]) Subjective Physical Therapy Visit Type Type Treatment Note Visit Start Time 11:40 Visit Stop Time 12:05 Total Visit Minutes 25 Number of 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 0 Physical Therapy Visit Comments Patient Comments agreeable to do PT M4 PT-IP Mobility and Gait Start: 01/27/22 16:21 Freq: NEEDED Status: Active Protocol: Document 01/29/22 11:40 AB (Rec: 01/29/22 13:10 AB [email or web address]) PT-Bed Mobility Assessment Supine to Sit Supine to Sit Standby Assistance PT-Transfer Assessment Sit to and From Stand Sit to and from Stand Contact Guard Assistance,1 Person Assistance,Use of Upper Extremities Equipment Transfer Assistive Device Gait Belt,Front Wheeled Walker Orthotic/Prosthetic Devices or Brace: No Transfers Transfer Destination Chair Transfer Technique ambulated Transfer Ability Level of Assist Contact Guard Assistance, Minimal Assistance,1 Person Assistance,Use of Upper Extremities Comments Mobility Comments O2 sat 90% at 5L/min. cued for deep breathing: increased to 91%. completed supine to sit with HOB elevated SBA. O2 sat decreased to 81% with initial sitting. pt tends to hold his breath with mobility. cued for deep breathing and O2 sat increased to 92%. pt able to sit on EOB SBA. completed sit to stand CGA and cues and ambulated in room using FWW ~ 20 ft CGA to min A and cues. pt has a steadier gait today compared to yesterday and with better LE elevation and stride length. pt sat on the chair. O2 sat after ambulation: 89-90%. cued for deep breathing and increased to 92%. pt agreed to sit on the chair. positioned. call light and table placed within reach. Gait Assessment Gait Gait Assistance Required: Contact Guard Assist,Minimum Assistance Distance (Feet) 20 Able to Maintain Weight Bearing Status Yes During Gait Assistive Devices Assistive Device Gait Belt,Front Wheeled Walker Orthotic/Prosthetic Devices or Brace: No Gait Deviations General Gait Pattern Decreased Stride Length, Decreased Feet Clearance Factors Limiting Gait Function Factors Limiting Gait Function Decreased Activity Tolerance, Decreased Strength,Poor Balance,Poor Safety Awareness, Respiratory Distress Comments Gait Comments pls refer to mobility section for details M5 PT-IP Objective Assessments Start: 01/27/22 16:21 Freq: NEEDED Status: Active Protocol: Document 01/27/22 15:30 AB (Rec: 01/27/22 16:36 AB [email or web address]) Orientation Orientation/Cognition Level of Alertness Alert Orientation Name,Place,Situation Language Function Ability No Deficits Noted Safety Awareness Decreased Safety Awareness Memory Description Short Term Impaired Gross Range of Motion Lower Extremity ROM Assessment Within Functional Limits Strength Lower Extremity Strength Hip 4-/5 Knee 4-/5 Muscle Tone Muscle Tone WNL Yes M6 PT-IP Treatment Start: 01/27/22 16:21 Freq: NEEDED Status: Active Protocol: Document 01/29/22 11:40 AB (Rec: 01/29/22 13:10 AB [email or web address]) Physical Therapy Treatment Education Education Provided Safety M7 PT-IP Assessment and Plan Start: 01/27/22 16:21 Freq: NEEDED Status: Active Protocol: Document 01/29/22 11:40 AB (Rec: 01/29/22 13:10 AB [email or web address]) PT Summary Assessment and Plan Potential Rehabilitation Potential Fair Summary Impairments Pain,ROM,Strength,Balance, Coordination,Sensation,Tone, Cognition,Bed Mobility, Transfers,Gait,Activity Tolerance Progress Towards Goals Slow Progress due to Medical Issues,Slow Progress due to Activity Tolerance Assessment Summary pt progressing slowly with mobility but continues to have decrease activity tolerance affecting functional independence. d/c plan depending on progress and at this time, will require SNF rehab to improve overall strength and mobility. will continue to assess progress. Goals Bed Mobility Goal Standby Assistance Transfer Goal Standby Assistance,Front Wheeled Walker Gait Goal Standby Assistance,Front Wheel Walker Gait Distance 100 Other Goals improve ambulation without AD/ least restrictive AD 150 ft SBA up/down 4 steps L rail ascending SBA Days to Meet Goals 10 Frequency of Treatment Frequency Of Treatment Once a Day Treatment Plan Physical Therapy Treatment Plan Bed Mobility Training,Transfer Training,Gait Training, Therapeutic Exercise,Balance Retraining,Discharge Planning, Hot or Cold Pack,Neuromuscular Re-ed,Coordination Retraining Precautions Other Precautions O2 sat Recommendations To Nursing Amount of Assist Needed 1 Person Assist Discharge Recommendations PT Discharge Recommendations SNF Rehab Equipment Needed for Home Before FWW if going home and not safe Discharge with SPC/without AD Transportation Needs at Discharge Wheelchair/Cabulance
--- NOTE | 2022-01-29 11:59 | CM.DPC ---
DCP Cont: Discussed patient during team rounds. He is on 5 liters of oxygen. Hospitalist has discussed possibility of transfer. Will depend upon patient's progress. P: DCP to continue to follow closely for any needs. Cassandra Garcia RN/Manager Hair
[2022-01-29] MEDS: VANCOMYCIN 1,750 MG in SODIUM CHLORIDE 0.9% 500 ML 250 MG IV (12:05)
[2022-01-29] MEDS: ACETAMINOPHEN 325 MG TABLET 650 MG PO (16:46)
[2022-01-29] MEDS: ONDANSETRON 4 MG/2 ML INJ IV (17:03)
--- NOTE | 2022-01-29 18:01 | P.PN_ITS ---
Subjective Subjective Date Patient Seen: 01/29/22 Time Patient Seen: 08:00 Interval history: He remains short of breath and still on oxygen. Exam Vital Signs (past 8 hours): - 01/29/22 14:00 01/29/22 10:15 01/29/22 10:30 Temperature Pulse Rate 82 80 Respiratory Rate 19 19 Blood Pressure Pulse Oximetry 92 94 Oxygen Delivery Method High Flow Nasal Cannula Oxygen Flow Rate 01/29/22 10:45 01/29/22 11:00 01/29/22 11:15 Temperature Pulse Rate 84 85 88 Respiratory Rate 21 22 22 Blood Pressure Pulse Oximetry 93 91 91 Oxygen Delivery Method Oxygen Flow Rate 01/29/22 11:19 01/29/22 11:19 01/29/22 11:30 Temperature Pulse Rate 88 86 Respiratory Rate 21 21 Blood Pressure 134/63 Pulse Oximetry 92 91 Oxygen Delivery Method Oxygen Flow Rate 01/29/22 11:45 01/29/22 12:00 01/29/22 12:13 Temperature 98.6 F Pulse Rate 86 95 H Respiratory Rate 22 24 Blood Pressure 135/66 Pulse Oximetry 91 90 L Oxygen Delivery Method Oxygen Flow Rate 5 01/29/22 12:13 01/29/22 12:15 01/29/22 12:30 Temperature Pulse Rate 92 H 92 H 91 H Respiratory Rate 17 18 20 Blood Pressure Pulse Oximetry 92 93 94 Oxygen Delivery Method Oxygen Flow Rate 01/29/22 12:45 01/29/22 13:00 01/29/22 13:15 Temperature Pulse Rate 90 89 88 Respiratory Rate 19 18 20 Blood Pressure Pulse Oximetry 92 93 95 Oxygen Delivery Method Oxygen Flow Rate 01/29/22 13:30 01/29/22 13:45 01/29/22 14:00 Temperature Pulse Rate 89 88 85 Respiratory Rate 19 19 22 Blood Pressure Pulse Oximetry 94 93 94 Oxygen Delivery Method Oxygen Flow Rate 01/29/22 14:15 01/29/22 14:30 01/29/22 14:45 Temperature Pulse Rate 85 85 86 Respiratory Rate 25 H 23 23 Blood Pressure Pulse Oximetry 92 93 93 Oxygen Delivery Method Oxygen Flow Rate 01/29/22 16:00 01/29/22 15:00 01/29/22 15:15 Temperature 100 F H Pulse Rate 85 90 90 Respiratory Rate 22 24 22 Blood Pressure 153/71 H Pulse Oximetry 90 L 93 90 L Oxygen Delivery Method Oxygen Flow Rate 5 01/29/22 15:30 01/29/22 15:45 01/29/22 16:00 Temperature Pulse Rate 90 86 86 Respiratory Rate 21 25 H 22 Blood Pressure Pulse Oximetry 92 93 91 Oxygen Delivery Method Oxygen Flow Rate 01/29/22 16:15 01/29/22 16:15 01/29/22 16:30 Temperature Pulse Rate 86 91 H Respiratory Rate 21 22 Blood Pressure 153/71 H Pulse Oximetry 90 L 87 L Oxygen Delivery Method Oxygen Flow Rate 01/29/22 16:45 01/29/22 17:00 01/29/22 17:19 Temperature 99.1 F Pulse Rate 91 H 95 H Respiratory Rate 21 41 H Blood Pressure Pulse Oximetry 89 L 92 Oxygen Delivery Method Oxygen Flow Rate Fraction of Inspired Oxygen 40 SaO2/FiO2 Ratio 232 Oxygen Delivery Method High Flow Nasal Cannula Oxygen Flow Rate 5 Narrative Exam Narrative: GEN: no acute distress PULM: poor air movement bilaterally, no wheezes, rhonchi, rales ABD: nontender, nondistended Objective Labs Result Diagrams: 01/29/22 06:18 01/29/22 06:18 Labs: Laboratory Results - last 24 hr 01/28/22 01/29/22 01/29/22 14:38 06:18 06:18 WBC 9.4 RBC 3.71 L Hgb 11.0 L Hct 32.4 L MCV 87.2 MCH 29.8 MCHC 34.1 RDW 14.0 Plt Count 267 Neut % (Auto) 75.6 H Lymph % (Auto) 8.9 L [place] % (Auto) 12.1 Eos % (Auto) 2.8 Baso % (Auto) 0.6 Neut # (Auto) 7100 H Lymph # (Auto) 800 L [place] # (Auto) 1100 H Eos # (Auto) 300 Baso # (Auto) 100 Sodium 132 L Potassium 4.0 Chloride 99 Carbon Dioxide 24 BUN 26 H Creatinine 1.12 Estimated GFR > 60 BUN/Creatinine Ratio 23.2 H Glucose 178 H Calcium 8.9 Lactate Dehydrogenase Complement C3 175 H Complement C4 58 H 01/29/22 06:18 WBC RBC Hgb Hct MCV MCH MCHC RDW Plt Count Neut % (Auto) Lymph % (Auto) [place] % (Auto) Eos % (Auto) Baso % (Auto) Neut # (Auto) Lymph # (Auto) [place] # (Auto) Eos # (Auto) Baso # (Auto) Sodium Potassium Chloride Carbon Dioxide BUN Creatinine Estimated GFR BUN/Creatinine Ratio Glucose Calcium Lactate Dehydrogenase 719 H Complement C3 Complement C4 PFSH Medical History Acid reflux Diabetes Hypertension Surgical History History of partial colectomy Social History household members: spouse Smoking Status: Current every day smoker alcohol intake: current Assessment & Plan Assessment & Plan narrative: Mr. Foss is a 66M with PMH DM who presents with abdominal pain, shortness of breath, and urinary hesitancy found to have acute urinary retention and pneumonia with respiratory failure. 1. Acute hypoxemic respiratory failure secondary to worsening pneumonia -patient with o2 sats in the 80s on admission -white count elevated consistent with infection, procal of 1.69 -CTA chest 01/24 concerning for pneumonia with bilateral consolidations -repeat CTA chest on 01/28 with worsening bilateral pneumonia, O2 requirements increased to 8L -transferred to ICU due to increased O2 requirements -repeat COVID negative -appreciate tele-ICU consult -continue lasix 20 IV daily to maintain euvolemia\ -etiology is broad with possible bacterial pna, including, pjp, hiv, and vasculitis 2. Abdominal pain, improving -suspect secondary to acute urinary retention vs pleuritic pain from PNA -CT abd showed bilateral hydronephrosis -expect symptoms to improve with further relief of obstruction -CT angio abd 01/28 with no source found of pain 3. Acute urinary retention secondary to likely BPH with outlet obstruction, improving -blankenship placed in ED with good urinary output -CT showed mild hydronephrosis -UA negative for infection -started tamsulosin during admission -may need to dc with blankenship and get outpatient voiding trial 4. Type 2 Diabetes on insulin, with hyperglycemia -prescribed 80U lantus daily at home, does not take regularly -continue 40U lantus daily with insulin sliding scale -a1c 12.2% -commissioning specialist consulted and provided education 5. Elevated troponin -patient with no chest pain or EKG changes -initial trop 0.039, then 0.038 -suspect secondary to demand from infection 6. Active smoker -encouraged cessation -nebs prn 7. Left upper lung abnormality -noted on chest xray -bilateral pneumonia on CTA chest but no upper lung issue 8. Renal cysts vs mass -seen incidentally on CT, possibly polycystic kidney disease -renal US shows large right cyst vs mass, recommend outpatient f/u with MRI Time Spent With Patient Critical Care time: I spent a total of [] minutes of critical care time on this patient's care today; this time is exclusive of procedural time. Quality VTE Deep Vein Thrombosis/Pulmonary Embolism Present on Admission: No
[2022-01-29] MEDS: INSULIN GLARGINE 100 UNIT/ML 3ML PEN 40 UNIT SUBCUT (20:36)
[2022-01-29] MEDS: SODIUM CHLORIDE 0.9% FLUSH 10 ML IV ×2 (20:37→21:35)
--- NOTE | 2022-01-29 20:42 | PM.ICURNDS ---
- :: This patient was seen via real time interactive two-way audiovisual telecommunication.remains on o2 at 5L. pending seroligies and remians on Abx, would conxider HIV test and PCP smear as well. wean off o2 as toelrated and repeat imaging.
[2022-01-30] VITALS (43 sets, daily range): BP systolic 132–156; BP diastolic 66–75; PULSE 69–101; RESP 0–53; TEMP 36.3–36.9; O2SAT 90–98
[2022-01-30] MEDS: OXYCODONE IR 5 MG TABLET PO ×2 (02:58→20:40)
[2022-01-30] MEDS: PANTOPRAZOLE DR 40 MG TABLET PO (06:01)
[2022-01-30 07:47] LABS: Add Manual Diff / Slide Review NO; Basophils Absolute Auto 0 /uL (0-100); Basophils Percent Auto 0.5 % (0-2); Eosinophils Absolute Auto 300 /uL (0-450); Eosinophils Percent Auto 3.3 % (2-4); Hematocrit 31.3 % (41-53); Hemoglobin 10.7 g/dL (13.5-17.5); Lymphocytes Absolute Auto 900 /uL (1100-4500); Mean Corpuscular HGB Conc 34.3 % (30-36); Mean Corpuscular Hemoglobin 29.9 PG (26-34); Mean Corpuscular Volume 87.3 fL (80-100); Monocytes Absolute Auto 900 /uL (0-900); Monocytes Percent Auto 11.2 % (3-14); Neutrophils Absolute Auto 5600 /uL (1500-7000); Platelet Count 285 X10^3/uL (150-400); Red Blood Cell Count 3.59 X10^6/uL (4.5-5.9); Red Cell Distribution Width 14.5 % (11.6-14.8); White Blood Cell Count 7.7 X10^3/uL (4.5-11.0)
[2022-01-30 07:53] LABS: Alanine Aminotransferase 114 IU/L (<50); Albumin 2.8 g/dL (3.5-5.0); Albumin Globulin Ratio 0.8 (1.0-2.8); Alkaline Phosphatase 677 U/L (38-126); Aspartate Aminotransferase 155 IU/L (17-59); BUN Creatinine Ratio 22.2 (6-22); Bilirubin Total 0.8 mg/dL (0.2-1.3); Blood Urea Nitrogen 26 mg/dL (9-20); Calcium 8.8 mg/dL (8.4-10.2); Carbon Dioxide 27 mmol/L (22-32); Chloride 100 mmol/L (98-107); Estimated Glomerular Filt Rate > 60 mL/min (>60); Globulin 3.4 g/dL (1.7-4.1); Glucose 213 mg/dL (80-110); HEMOLYSIS < 15 (0-50); Potassium 3.8 mmol/L (3.4-5.1); Sodium 132 mmol/L (137-145); Total Protein 6.2 g/dL (6.3-8.2)
[2022-01-30] MEDS: ENOXAPARIN 40 MG/0.4 ML SYRINGE SUBCUT (08:06)
[2022-01-30] MEDS: TAMSULOSIN 0.4 MG CAPSULE PO (08:06)
[2022-01-30] MEDS: FUROSEMIDE 20 MG/2 ML VIAL IV ×2 (08:06→20:39)
[2022-01-30] MEDS: SENNOSIDES 8.6 MG TABLET PO ×2 (08:07→20:40)
[2022-01-30] MEDS: INSULIN LISPRO 100 UNIT/ML 3ML VIAL SUBCUT ×4 (08:07→20:46)
[2022-01-30 08:12] LABS: HIV 1 & 2 Ab/Ag 4th Gen Combo NEGATIVE (NEGATIVE)
[2022-01-30] MEDS: SODIUM CHLORIDE 0.9% FLUSH 10 ML IV ×2 (08:17→20:51)
[2022-01-30] MEDS: BUDESONIDE 0.5 MG/2 ML NEB INH ×2 (08:23→19:13)
--- NOTE | 2022-01-30 09:00 | PM.PN.EICU ---
Subjective Subjective IF CAMERA ACTIVATED, patient seen via real-time interactive audiovisual communication: Camera activated Consent obtained for tele-automotive buyer care: Yes Patient Location: ICU Provider location (State): [place] Other participants/roles: hospitalist, RN Interval history: 66 yo man with PMH of T2DM, HTN, asthma, Fibromyalgia, GERD and? vasculitis (? 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 Pt. started on Ceftriaxone and Azithromycin for PNA and fever and leukocytosis improved but oxygen requirement increased 01/27 despite trial of diuresis.? Pt. transferred to ICU for HFNC (5L 40% FIO2). Repeat CT showed some improvement in old consolidations but worsening of GGO and infiltrates in other areas of the lung.? 01/28: Abx broadened to Cefepime and vancomycin.? Blood work sent off for autoimmune processes 01/29: respiratory status remains stable on 5L nc Recent events: No change, patient still requiring 5L nc, autoimmune labs still pending, Patient diuresed out another 1.5 L net neg in last 24 hours. - Patient's AST/ALT and ALK phos increased today but he reports his abd pain is actually improved -patient feels his breathing is also better Current Medications Current Medications Medications: Home Medications albuterol sulfate 90 mcg/actuation aerosol inhaler (Ventolin HFA) 2 puff inhalation BID 01/24/22 [History Confirmed 01/24/22] cyclobenzaprine 10 mg tablet 10 mg PO TID 01/24/22 [History Confirmed 01/24/22] insulin glargine 100 unit/mL (3 mL) subcutaneous pen (Lantus Solostar U-100 Insulin) 80 unit SUBCUT DAILY 01/24/22 [History Confirmed 01/24/22] insulin lispro 100 unit/mL subcutaneous cartridge (Humalog U-100 Insulin) See Rx Instructions .Route .COMPLEX 01/24/22 [History Confirmed 01/24/22] Visit Medications (administered) Generic Name Dose Route Start Last Admin Trade Name Freq PRN Reason Stop Dose Admin Acetaminophen 650 mg 01/25/22 02:00 01/29/22 16:46 Acetaminophen 325 Mg Tablet PO 650 mg Q4H PRN Administration Fever/Mild Pain (1-3) Albuterol/Ipratropium 3 ml 01/24/22 21:25 01/28/22 06:19 Albuterol/Ipratropium 3 Ml Ampul INH 3 ml RTQ6HR PRN Administration Shortness Of Breath Budesonide 0.5 mg 01/26/22 20:00 01/30/22 08:23 Budesonide 0.5 Mg/2 Ml Neb INH 0.5 mg RTBID CASI Administration Enoxaparin Sodium 40 mg 01/25/22 09:00 01/30/22 08:06 Enoxaparin 40 Mg/0.4 Ml Syringe SUBCUT 40 mg DAILY CASI Administration Furosemide 20 mg 01/29/22 21:00 01/30/22 08:06 Furosemide 20 Mg/2 Ml Vial IV 20 mg BID CASI Administration Cefepime HCl 2 gm/ Sodium 100 mls @ 200 mls/hr 01/28/22 10:00 01/29/22 22:17 Chloride IV Infused Q12H CASI Infusion Vancomycin HCl 1,750 mg/ 500 mls @ 250 mls/hr 01/29/22 12:00 01/29/22 19:08 Sodium Chloride IV Infused Q24H CASI Infusion Insulin Glargine 40 unit 01/25/22 21:00 01/29/22 20:36 Insulin Glargine 100 Unit/Ml 3ml Pen SUBCUT 40 unit BEDTIME CASI Administration Insulin Human Lispro 0 unit 01/24/22 21:00 01/30/22 08:07 Insulin Lispro 100 Unit/Ml 3ml Vial SUBCUT 4 unit ACHS CASI Administration Protocol Nicotine 21 mg 01/26/22 18:15 01/30/22 08:07 Nicotine 21 Mg Patch TOP Not Given DAILY [facility] Ondansetron HCl 4 mg 01/24/22 20:02 01/29/22 17:03 Ondansetron 4 Mg/2 Ml Inj IV 4 mg Q8HR PRN Administration Nausea And Vomiting Oxycodone HCl 5 mg 01/26/22 13:47 01/30/22 02:58 Oxycodone Ir 5 Mg Tablet PO 5 mg Q4HR PRN Administration Pain, Moderate (4-6) Pantoprazole Sodium 40 mg 01/25/22 15:15 01/30/22 06:[address] 40 Mg Tablet PO 40 mg 0700 CASI Administration Polyethylene Glycol 17 gm 10/06/22 13:45 01/30/22 08:07 Polyethylene Glycol 3350 17 Gm Powd.Pack PO Not Given DAILY CASI Sennosides 8.6 mg 01/27/22 13:45 01/30/22 08:07 Sennosides 8.6 Mg Tablet PO 8.6 mg BID CASI Administration Sodium Chloride 10 ml 01/25/22 14:41 01/29/22 21:35 Sodium Chloride 0.9% Flush IV 10 ml PRN PRN Administration Flush Sodium Chloride 10 ml 01/25/22 21:00 01/30/22 08:17 Sodium Chloride 0.9% Flush IV 10 ml BID CASI Administration Tamsulosin HCl 0.4 mg 01/25/22 09:00 01/30/22 08:06 Tamsulosin 0.4 Mg Capsule PO 0.4 mg DAILY CASI Administration Objective Labs Result Diagrams: 01/30/22 06:20 01/30/22 06:20 Labs: Laboratory Results - last 24 hr 01/29/22 01/30/22 01/30/22 06:18 06:20 06:20 WBC 7.7 RBC 3.59 L Hgb 10.7 L Hct 31.3 L MCV 87.3 MCH 29.9 MCHC 34.3 RDW 14.5 Plt Count 285 Neut % (Auto) 73.0 Lymph % (Auto) 12.0 L [place] % (Auto) 11.2 Eos % (Auto) 3.3 Baso % (Auto) 0.5 Neut # (Auto) 5600 Lymph # (Auto) 900 L [place] # (Auto) 900 Eos # (Auto) 300 Baso # (Auto) 0 Sodium 132 L Potassium 3.8 Chloride 100 Carbon Dioxide 27 BUN 26 H Creatinine 1.17 Estimated GFR > 60 BUN/Creatinine Ratio 22.2 H Glucose 213 H Calcium 8.8 Magnesium 2.0 Total Bilirubin 0.8 AST 155 H ALT 114 H Alkaline Phosphatase 677 H D Lactate Dehydrogenase 719 H Total Protein 6.2 L Albumin 2.8 L Globulin 3.4 Albumin/Globulin Ratio 0.8 L HIV 1&2 Ab/P24 Ag 4thGn 01/30/22 06:25 WBC RBC Hgb Hct MCV MCH MCHC RDW Plt Count Neut % (Auto) Lymph % (Auto) [place] % (Auto) Eos % (Auto) Baso % (Auto) Neut # (Auto) Lymph # (Auto) [place] # (Auto) Eos # (Auto) Baso # (Auto) Sodium Potassium Chloride Carbon Dioxide BUN Creatinine Estimated GFR BUN/Creatinine Ratio Glucose Calcium Magnesium Total Bilirubin AST ALT Alkaline Phosphatase Lactate Dehydrogenase Total Protein Albumin Globulin Albumin/Globulin Ratio HIV 1&2 Ab/P24 Ag 4thGn Negative Exam Vital Signs (past 8 hours): - 01/30/22 03:03 01/30/22 04:00 01/30/22 07:00 Temperature 97.4 F L Pulse Rate 92 H Respiratory Rate 16 Blood Pressure 133/66 Pulse Oximetry 96 94 Oxygen Delivery Method High Flow Nasal Cannula High Flow Nasal Cannula Oxygen Flow Rate 5 5 01/30/22 08:23 01/30/22 01:15 01/30/22 01:30 Temperature Pulse Rate 80 70 76 Respiratory Rate 18 15 24 Blood Pressure Pulse Oximetry 94 91 94 Oxygen Delivery Method Nasal Cannula Oxygen Flow Rate 5 01/30/22 01:45 01/30/22 02:00 01/30/22 02:15 Temperature Pulse Rate 74 77 77 Respiratory Rate 29 H 18 17 Blood Pressure Pulse Oximetry 96 94 94 Oxygen Delivery Method Oxygen Flow Rate 01/30/22 02:30 01/30/22 02:45 01/30/22 03:00 Temperature Pulse Rate 76 75 83 Respiratory Rate 16 16 33 H Blood Pressure Pulse Oximetry 94 93 90 L Oxygen Delivery Method Oxygen Flow Rate 01/30/22 03:15 01/30/22 03:48 01/30/22 03:54 Temperature Pulse Rate 90 101 H Respiratory Rate 47 H Blood Pressure 133/66 Pulse Oximetry 94 Oxygen Delivery Method Oxygen Flow Rate 01/30/22 03:54 01/30/22 04:00 01/30/22 04:15 Temperature Pulse Rate 89 90 86 Respiratory Rate 18 24 27 H Blood Pressure Pulse Oximetry 96 95 95 Oxygen Delivery Method Oxygen Flow Rate 01/30/22 04:30 01/30/22 04:45 01/30/22 05:00 Temperature Pulse Rate 84 81 81 Respiratory Rate 15 16 14 Blood Pressure Pulse Oximetry 95 94 95 Oxygen Delivery Method Oxygen Flow Rate 01/30/22 05:15 01/30/22 05:30 01/30/22 05:45 Temperature Pulse Rate 78 76 76 Respiratory Rate 15 18 16 Blood Pressure Pulse Oximetry 95 96 94 Oxygen Delivery Method Oxygen Flow Rate 01/30/22 06:00 01/30/22 06:15 01/30/22 06:30 Temperature Pulse Rate 69 71 74 Respiratory Rate 17 15 17 Blood Pressure Pulse Oximetry 97 96 95 Oxygen Delivery Method Oxygen Flow Rate 01/30/22 06:45 01/30/22 07:00 01/30/22 07:15 Temperature Pulse Rate 73 73 72 Respiratory Rate 17 22 17 Blood Pressure Pulse Oximetry 95 95 95 Oxygen Delivery Method Oxygen Flow Rate 01/30/22 07:30 01/30/22 07:45 01/30/22 07:56 Temperature Pulse Rate 73 76 Respiratory Rate 17 17 Blood Pressure 132/69 Pulse Oximetry 96 94 Oxygen Delivery Method Oxygen Flow Rate 01/30/22 07:56 01/30/22 08:00 01/30/22 08:15 Temperature Pulse Rate 78 78 77 Respiratory Rate 13 14 22 Blood Pressure Pulse Oximetry 95 94 94 Oxygen Delivery Method Oxygen Flow Rate 01/30/22 08:45 01/30/22 07:00 Temperature 98.0 F Pulse Rate 77 Respiratory Rate 12 Blood Pressure 132/69 Pulse Oximetry 95 Oxygen Delivery Method High Flow Nasal Cannula Oxygen Flow Rate 5 Fraction of Inspired Oxygen 40 SaO2/FiO2 Ratio 235 Oxygen Delivery Method Nasal Cannula Oxygen Flow Rate 5 Narrative Exam Narrative: patient seen through 2 way audio visual system. He is alert, conversant, and breathing comfortably on 5L nc Quality TeleICU VTE Deep Vein Thrombosis/Pulmonary Embolism Present on Admission: No Assessment & Plan Assessment & Plan narrative: Assessment: Acute hypoxic respiratory failure B/L pulmonary infiltrates and GGO h/o of vasculitis (microscopic polyangitis?) DM mild hyponatremia Discussion:? 66 yo man with PMH Of vasculitis who presented with fever, leukoctyosis, and B/L pulmonary infiltrates was started on Ceftriaxone and azithromycin.? Patient's fever and leukocytosis improved but his hypxoemia and chest CT findings between 01/24 and 01/28 have worsened.? Some of the dense infiltlrates seen on 01/24 have improved but there is increased GGO.? Highest on differential is some sort of inflammatory/autoimmune process such as vasculitis, Cryptogenic organizing PNA, or eosinophilic PNA. Recommendations -continue Cefepime and Vancomycin for now but if cultures neg consider stopping abx -f/u on autoimmune workup (including ZARINA, ANCA, anti-GBM, Complement levels, anti-double stranded DNA antibodies, cryoglobulinss) - HIV test neg - PCP smear - free water restriction for mild hyponatremia - f/u CXR today Discussed with patient the option of transferring patient to another hospital for bronchoscopy and VATS for lung biopsy to get more definitive diagnosis vs starting antibiotics empirically to see if he improves with it (as many of the diagnoses on the differential are steroid responsive) if his autoimmune work-up labs are unrevealing. Patient stated that he would rather do a trial of steroids and avoid invasive procedures. wants try patient on empiric steroids today instead of waiting for results of autoimmune lab tests to come back. -will start patient on Prednisone 80 mg QD x 3 days, then 60 mg QD x 3 days, then 40 mg QD x 1 week and then taper as tolerated over a course of several months -plan to repeat chest CT in 1 week to evaluate response, - if no improvement consider transferring to another hospital for bronchoscophy and VATS lung biopsy discussed my assessment and plan with hospitalist Dr. Jeter Addendum: repeat CXR today just came back and shows improvement. Will hold off on committing patient to a prolonged steroid course for now pending repeat repeat chest CT tomorrow and autoimmune lab work results. Time Spent With Patient Critical Care time: I spent a total of [] minutes of critical care time on this patient's care today; this time is exclusive of procedural time.
[2022-01-30] MEDS: POTASSIUM CHLORIDE 20 MEQ/15 ML UDC PO (09:38)
[2022-01-30] MEDS: CEFEPIME 2 GM in SODIUM CHLORIDE 0.9% 100 ML IV ×2 (09:41→22:34)
--- NOTE | 2022-01-30 10:22 | DI.RAD.S_ITS ---
PROCEDURE: XR CHEST 1V INDICATIONS: f/u on pulm infiltrates TECHNIQUE: One view of the chest was acquired. COMPARISON: [facility], CR, XR CHEST 1V, 01/24/2022, 15:32. [facility], CT, CT ANGIO CHEST ABDOMEN PELVIS, 01/28/2022, 8:04. [facility], CR, XR CHEST 1V, 01/27/2022, 11:26. FINDINGS: Surgical changes and devices: None. Lungs and pleura: Patchy bilateral pulmonary emboli traits are seen, which are improved compared to the 01/27/2022 plain film study. Low lung volumes are noted. This causes a crowded appearance to the lung markings and limits evaluation. No large pneumothorax or large pleural effusions are seen. Mediastinum: Mediastinal contours appear normal. Heart size is normal. Bones and chest wall: Age-appropriate bony degenerative changes are seen. No suspicious bony lesions. Overlying soft tissues appear unremarkable. IMPRESSION: Improved bilateral patchy pulmonary infiltrates. Dictated by: Yunior Groves M.D. on 01/30/2022 at 10:03 Approved by: Yunior Groves M.D. on 01/30/2022 at 10:04
[2022-01-30] MEDS: predniSONE 20 MG TABLET 80 MG PO (10:23)
--- NOTE | 2022-01-30 11:48 | PT.IPTN ---
Current Diagnoses Pneumonia, unspecified organism (01/24/22) Physical Therapy Treatment Note M2 PT-IP Current Condition Start: 01/27/22 16:21 Freq: NEEDED Status: Active Protocol: Document 01/27/22 15:30 AB (Rec: 01/27/22 16:36 AB [id number]) Physical Therapy Current Condition Current Condition Evaluation Date 01/27/22 Treatment Diagnosis PNA; urinary retention; hydronephrosis; difficulty in walking Onset Date 01/24/22 M3 PT-IP Subjective Start: 01/27/22 16:21 Freq: NEEDED Status: Active Protocol: Document 01/30/22 11:48 AW (Rec: 01/30/22 12:08 AW [id number]) Subjective Physical Therapy Visit Type Type Treatment Note Visit Start Time 11:24 Visit Stop Time 11:48 Total Visit Minutes 24 Number of DIRECTOR OF PROGRAM MANAGEMENT Visits 0 Physical Therapy Visit Comments Patient Comments agreeable to do PT Therapy Pain Assessment Pain When Pain Assessed At Rest Pain Present Pain Present Denied Pain M4 PT-IP Mobility and Gait Start: 01/27/22 16:21 Freq: NEEDED Status: Active Protocol: Document 01/30/22 11:48 AW (Rec: 01/30/22 12:08 AW [id number]) PT-Bed Mobility Assessment Supine to Sit Supine to Sit Standby Assistance PT-Transfer Assessment Sit to and From Stand Sit to and from Stand Contact Guard Assistance,1 Person Assistance,Use of Upper Extremities Equipment Transfer Assistive Device Gait Belt,Front Wheeled Walker Orthotic/Prosthetic Devices or Brace: No Transfers Transfer Destination Bed Transfer Ability Level of Assist Contact Guard Assistance,Use of Upper Extremities Comments Mobility Comments Pt on 3L/min O2 (just reduced from 5L) and SpO2 94%. Pt sat up on left EOB SBA. SpO2 was stable. Pt stood CGA and used FWW to ambulate around the room a total of 75 feet with 4 standing rest breaks. SpO2 was 90-94% during ambulation. Pt finally complained of weakness and feeling winded. He returned to sitting EOB. RN changed flow rate to 2L/min and SpO2 stabilized ~94%. Pt was left sitting EOB with RN in the room. Gait Assessment Gait Gait Assistance Required: Contact Guard Assist Distance (Feet) 75 Able to Maintain Weight Bearing Status Yes During Gait Assistive Devices Assistive Device Gait Belt,Front Wheeled Walker Gait Deviations General Gait Pattern Decreased Stride Length, Decreased Feet Clearance Factors Limiting Gait Function Factors Limiting Gait Function Decreased Activity Tolerance, Decreased Strength,Poor Balance,Poor Safety Awareness, Respiratory Distress Comments Gait Comments pls refer to mobility section for details M5 PT-IP Objective Assessments Start: 01/27/22 16:21 Freq: NEEDED Status: Active Protocol: Document 01/27/22 15:30 AB (Rec: 01/27/22 16:36 AB [id number]) Orientation Orientation/Cognition Level of Alertness Alert Orientation Name,Place,Situation Language Function Ability No Deficits Noted Safety Awareness Decreased Safety Awareness Memory Description Short Term Impaired Gross Range of Motion Lower Extremity ROM Assessment Within Functional Limits Strength Lower Extremity Strength Hip 4-/5 Knee 4-/5 Muscle Tone Muscle Tone WNL Yes M6 PT-IP Treatment Start: 01/27/22 16:21 Freq: NEEDED Status: Active Protocol: Document 01/30/22 11:48 AW (Rec: 01/30/22 12:08 AW [id number]) Physical Therapy Treatment Education Education Provided Safety M7 PT-IP Assessment and Plan Start: 01/27/22 16:21 Freq: NEEDED Status: Active Protocol: Document 01/30/22 11:48 AW (Rec: 01/30/22 12:08 AW [id number]) PT Summary Assessment and Plan Potential Rehabilitation Potential Good Summary Assessment Summary Pt improving slowly in mobility with FWW. He tolerated 75 feet ambulation with 4 rest breaks today on 3L /min O2 with stable SpO2 (90- 94%). Discharge plan depending on progress. PT recommending home with HH vs SNF. Pt is stating preference for home. Will continue to assess progress. Goals Bed Mobility Goal Standby Assistance Transfer Goal Standby Assistance,Front Wheeled Walker Gait Goal Standby Assistance,Front Wheel Walker Gait Distance 100 Other Goals improve ambulation without AD/ least restrictive AD 150 ft SBA up/down 4 steps L rail ascending SBA Days to Meet Goals 10 Frequency of Treatment Frequency Of Treatment Once a Day Treatment Plan Physical Therapy Treatment Plan Bed Mobility Training,Transfer Training,Gait Training, Therapeutic Exercise,Balance Retraining,Discharge Planning, Hot or Cold Pack,Neuromuscular Re-ed,Coordination Retraining Precautions Other Precautions O2 sat Recommendations To Nursing Amount of Assist Needed 1 Person Assist Discharge Recommendations PT Discharge Recommendations Home with Assistance,Home Health,SNF Rehab,Home vs SNF Equipment Needed for Home Before FWW if going home and not safe Discharge with SPC/without AD Transportation Needs at Discharge Private Vehicle,Wheelchair/ Cabulance
[2022-01-30] MEDS: VANCOMYCIN 1,750 MG in SODIUM CHLORIDE 0.9% 500 ML 250 MG IV (12:19)
--- NOTE | 2022-01-30 16:25 | PM.PN.1 ---
Subjective Subjective Date Patient Seen: 01/30/22 Interval history: Remains short of breath, but continues to have slow improvement every day. Now only on a few L of nasal cannula. Exam Vital Signs (past 8 hours): - 01/30/22 08:45 01/30/22 11:00 01/30/22 11:56 Temperature 98.0 F Pulse Rate 77 Respiratory Rate 12 Blood Pressure 132/69 Pulse Oximetry 95 95 Oxygen Delivery Method High Flow Nasal Cannula High Flow Nasal Cannula Oxygen Flow Rate 5 2 01/30/22 12:00 01/30/22 15:00 Temperature 97.4 F L Pulse Rate 94 H Respiratory Rate 18 Blood Pressure 141/71 H Pulse Oximetry Oxygen Delivery Method High Flow Nasal Cannula Oxygen Flow Rate Fraction of Inspired Oxygen 40 SaO2/FiO2 Ratio 235 Oxygen Delivery Method High Flow Nasal Cannula Oxygen Flow Rate 2 Narrative Exam Narrative: GEN: no acute distress, appears older than stated age HEENT: dry mucous membranes, poor dentition, PERRL NECK: trachea midline, no JVD PULM: poor air movement bilaterally, no wheezes, rhonchi, rales ABD: S NT ND EXT: warm and well perfused with no edema NEURO: no focal deficits noted, awake and alert. Objective Labs Result Diagrams: 01/30/22 06:20 01/30/22 06:20 Labs: Laboratory Results - last 24 hr 01/30/22 01/30/22 01/30/22 06:20 06:20 06:25 WBC 7.7 RBC 3.59 L Hgb 10.7 L Hct 31.3 L MCV 87.3 MCH 29.9 MCHC 34.3 RDW 14.5 Plt Count 285 Neut % (Auto) 73.0 Lymph % (Auto) 12.0 L [place] % (Auto) 11.2 Eos % (Auto) 3.3 Baso % (Auto) 0.5 Neut # (Auto) 5600 Lymph # (Auto) 900 L [place] # (Auto) 900 Eos # (Auto) 300 Baso # (Auto) 0 Sodium 132 L Potassium 3.8 Chloride 100 Carbon Dioxide 27 BUN 26 H Creatinine 1.17 Estimated GFR > 60 BUN/Creatinine Ratio 22.2 H Glucose 213 H Calcium 8.8 Magnesium 2.0 Total Bilirubin 0.8 AST 155 H ALT 114 H Alkaline Phosphatase 677 H D Total Protein 6.2 L Albumin 2.8 L Globulin 3.4 Albumin/Globulin Ratio 0.8 L HIV 1&2 Ab/P24 Ag 4thGn Negative [facility] Medical History Acid reflux Diabetes Hypertension Surgical History History of partial colectomy Social History household members: spouse Smoking Status: Current every day smoker alcohol intake: current Assessment & Plan Assessment & Plan narrative: Mr. Foss is a 66M with H DM who presents with abdominal pain, shortness of breath, and urinary hesitancy found to have acute urinary retention and pneumonia with respiratory failure. 1. Acute hypoxemic respiratory failure secondary to worsening pneumonia -patient with o2 sats in the 80s on admission, patient with worsening pneumonia after initial antibiotics. Concern for possible autoimmune or less common cause. -transferred to ICU due to increased O2 requirements, but since has now improved to 2L today. -Stable for regular floor today. -repeat COVID negative -appreciate tele-ICU consult. they recommend continued antibiotics today, repeat CT tomorrow and if improvement continue that course. If worsening consider steroids and await lab workup. -etiology is broad with possible bacterial pna, including, pjp, and vasculitis -complement levels are elevated. ANCA and ZARINA pending. HIV negative. -has been getting diuresed as well with improvement. consider echo. 2. Abdominal pain, improving -suspect secondary to acute urinary retention vs pleuritic pain from PNA -CT abd showed bilateral hydronephrosis -expect symptoms to improve with further relief of obstruction -CT angio abd 01/28 with no source found of pain 3. Acute urinary retention secondary to likely BPH with outlet obstruction, improving -blankenship placed in ED with good urinary output -CT showed mild hydronephrosis -UA negative for infection -started tamsulosin during admission -may need to dc with blankenship and get outpatient voiding trial 4. Type 2 Diabetes on insulin, with hyperglycemia -prescribed 80U lantus daily at home, does not take regularly -continue 40U lantus daily with insulin sliding scale -a1c 12.2% -account administrator consulted and provided education 5. Elevated troponin -patient with no chest pain or EKG changes -initial trop 0.039, then 0.038 -suspect secondary to demand from infection 6. Active smoker -encouraged cessation -nebs prn 7. Left upper lung abnormality -noted on chest xray -bilateral pneumonia on CTA chest but no upper lung issue 8. Renal cysts vs mass -seen incidentally on CT, possibly polycystic kidney disease -renal US shows large right cyst vs mass, recommend outpatient f/u with MRI 9. Transaminitis - unclear etiology today, possibly drug induced which is suspected at this time. - continue to trend for now, consider changing cefepime or stopping depending on trend. I spent 30 minutes providing critical care management this patient. This excludes time spent in performing separately billed procedures. Dispo: stable for transfer to floor care today. Time Spent With Patient Critical Care time: I spent a total of [] minutes of critical care time on this patient's care today; this time is exclusive of procedural time. Quality VTE Deep Vein Thrombosis/Pulmonary Embolism Present on Admission: No
[2022-01-30] MEDS: INSULIN GLARGINE 100 UNIT/ML 3ML PEN 40 UNIT SUBCUT (20:52)
[2022-01-31] VITALS: BP 133/69; PULSE 92; RESP 19; TEMP 36.9; O2SAT 92
[2022-01-31 04:00] VITALS: BP 163/74; PULSE 94; RESP 19; TEMP 36.3; O2SAT 92
[2022-01-31] MEDS: PANTOPRAZOLE DR 40 MG TABLET PO (06:16)
[2022-01-31 06:23] LABS: Add Manual Diff / Slide Review NO; Basophils Absolute Auto 0 /uL (0-100); Basophils Percent Auto 0.3 % (0-2); Eosinophils Absolute Auto 0 /uL (0-450); Eosinophils Percent Auto 0.3 % (2-4); Hematocrit 32.2 % (41-53); Lymphocytes Absolute Auto 1000 /uL (1100-4500); Lymphocytes Percent Auto 9.5 % (25-40); Mean Corpuscular HGB Conc 34.3 % (30-36); Mean Corpuscular Hemoglobin 29.8 PG (26-34); Mean Corpuscular Volume 86.9 fL (80-100); Monocytes Absolute Auto 900 /uL (0-900); Monocytes Percent Auto 8.9 % (3-14); Neutrophils Absolute Auto 8100 /uL (1500-7000); Platelet Count 335 X10^3/uL (150-400); Red Blood Cell Count 3.71 X10^6/uL (4.5-5.9); Red Cell Distribution Width 14.4 % (11.6-14.8)
[2022-01-31 06:35] LABS: Alanine Aminotransferase 88 IU/L (<50); Albumin Globulin Ratio 0.8 (1.0-2.8); Alkaline Phosphatase 613 U/L (38-126); Aspartate Aminotransferase 49 IU/L (17-59); BUN Creatinine Ratio 22.5 (6-22); Bilirubin Total 0.4 mg/dL (0.2-1.3); Blood Urea Nitrogen 29 mg/dL (9-20); Calcium 8.9 mg/dL (8.4-10.2); Carbon Dioxide 24 mmol/L (22-32); Chloride 99 mmol/L (98-107); Estimated Glomerular Filt Rate > 60 mL/min (>60); Globulin 3.6 g/dL (1.7-4.1); Glucose 374 mg/dL (80-110); HEMOLYSIS < 15 (0-50); Potassium 4.3 mmol/L (3.4-5.1); Sodium 131 mmol/L (137-145); Total Protein 6.6 g/dL (6.3-8.2)
[2022-01-31 08:00] VITALS: BP 142/67; PULSE 74; RESP 15; TEMP 36.4; O2SAT 97
[2022-01-31 08:30] VITALS: PULSE 80; RESP 16; O2SAT 95
[2022-01-31] MEDS: BUDESONIDE 0.5 MG/2 ML NEB INH (08:30)
[2022-01-31] MEDS: SENNOSIDES 8.6 MG TABLET PO (08:44)
[2022-01-31] MEDS: TAMSULOSIN 0.4 MG CAPSULE PO (08:45)
[2022-01-31] MEDS: FUROSEMIDE 20 MG/2 ML VIAL IV (08:45)
[2022-01-31] MEDS: SODIUM CHLORIDE 0.9% FLUSH 10 ML IV (08:45)
[2022-01-31] MEDS: ENOXAPARIN 40 MG/0.4 ML SYRINGE SUBCUT (08:48)
[2022-01-31] MEDS: INSULIN LISPRO 100 UNIT/ML 3ML VIAL SUBCUT ×2 (08:59→12:22)
--- NOTE | 2022-01-31 09:05 | CM.DPC ---
DCP Cont: DCP went to speak to pt regarding home health agencies. Pt concerned about insurance coverage for HH. DCP verbalized that [employer] insurance does cover HH. Pt then stated, I don't think I need this. I am ok. Pt has declined HH at this time. Verbalized this information to PT. DCP to continue to follow and provide assistance as needed. Shea Holland RN/DCP
[2022-01-31] MEDS: CEFEPIME 2 GM in SODIUM CHLORIDE 0.9% 100 ML IV (10:15)
--- NOTE | 2022-01-31 10:50 | PT.IPTN ---
Current Diagnoses Pneumonia, unspecified organism (01/24/22) Physical Therapy Treatment Note M2 PT-IP Current Condition Start: 01/27/22 16:21 Freq: NEEDED Status: Active Protocol: Document 01/27/22 15:30 AB (Rec: 01/27/22 16:36 AB [id number]) Physical Therapy Current Condition Current Condition Evaluation Date 01/27/22 Treatment Diagnosis PNA; urinary retention; hydronephrosis; difficulty in walking Onset Date 01/24/22 M3 PT-IP Subjective Start: 01/27/22 16:21 Freq: NEEDED Status: Active Protocol: Document 01/31/22 10:50 AW (Rec: 01/31/22 11:47 AW [id number]) Subjective Physical Therapy Visit Type Type Treatment Note Visit Start Time 10:25 Visit Stop Time 10:50 Total Visit Minutes 25 Number of MOTOR VEHICLE CLERK Visits 0 Physical Therapy Visit Comments Patient Comments agreeable to do PT Therapy Pain Assessment Pain When Pain Assessed At Rest Pain Present Pain Present Denied Pain M4 PT-IP Mobility and Gait Start: 01/27/22 16:21 Freq: NEEDED Status: Active Protocol: Document 01/31/22 10:50 AW (Rec: 01/31/22 11:47 AW [id number]) PT-Bed Mobility Assessment Supine to Sit Supine to Sit Standby Assistance PT-Transfer Assessment Sit to and From Stand Sit to and from Stand Standby Assistance,Use of Upper Extremities Equipment Transfer Assistive Device Gait Belt,Front Wheeled Walker Orthotic/Prosthetic Devices or Brace: No Transfers Transfer Destination Bed,Toilet Transfer Ability Level of Assist Standby Assistance,Use of Upper Extremities Comments Mobility Comments Pt on room air today, satting at 94% as PT arrived. He sat up EOB SBA and stood to ambulate to the toilet with FWW SBA. SpO2 was stable and pt denied SOB. He used the bathroom SBA and walked back to the chair. He continued walking with FWW SBA a total of 150 feet without rest break . SpO2 was 89% on return to the room but rebounded to 93% within 15 seconds. Pt stood and walked without AD 50 feet SBA but occasionally reached for the wall to steady himself . He completed stairs assessment with SpO2 88% at lowest point but with quick rebound to 93%. He walked 50 feet back to the room and SpO2 was 93%. Pt was left sitting EOB. Communicated pt's mobility and O2 status to medical team. Gait Assessment Gait Gait Assistance Required: Standby Assistance Distance (Feet) 150 Able to Maintain Weight Bearing Status Yes During Gait Assistive Devices Assistive Device None,Gait Belt,Front Wheeled Walker Gait Deviations General Gait Pattern Decreased Stride Length, Decreased Feet Clearance Factors Limiting Gait Function Factors Limiting Gait Function Decreased Activity Tolerance, Decreased Strength,Poor Balance,Poor Safety Awareness Comments Gait Comments pls refer to mobility section for details M5 PT-IP Objective Assessments Start: 01/27/22 16:21 Freq: NEEDED Status: Active Protocol: Document 01/27/22 15:30 AB (Rec: 01/27/22 16:36 AB [id number]) Orientation Orientation/Cognition Level of Alertness Alert Orientation Name,Place,Situation Language Function Ability No Deficits Noted Safety Awareness Decreased Safety Awareness Memory Description Short Term Impaired Gross Range of Motion Lower Extremity ROM Assessment Within Functional Limits Strength Lower Extremity Strength Hip 4-/5 Knee 4-/5 Muscle Tone Muscle Tone WNL Yes M6 PT-IP Treatment Start: 01/27/22 16:21 Freq: NEEDED Status: Active Protocol: Document 01/31/22 10:50 AW (Rec: 01/31/22 11:47 AW [id number]) Physical Therapy Treatment Education Education Provided Safety M7 PT-IP Assessment and Plan Start: 01/27/22 16:21 Freq: NEEDED Status: Active Protocol: Document 01/31/22 10:50 AW (Rec: 01/31/22 11:47 AW [id number]) PT Summary Assessment and Plan Potential Rehabilitation Potential Good Summary Progress Towards Goals Progressing Toward Goals,Safe For Discharge Assessment Summary Pt improved his mobility significantly today, walking 150 with FWW and no need for rest breaks with SpO2 89-93% on room air. He also was able to complete 100 feet ambulation without AD and stair training without dropping his O2 sats below 89% . SpO2 improved to 93% within 10-15 seconds' rest. Pt is safe for the home environment. PT continues to recommend use of an assistive device in the short term for energy conservation and balance support. He would benefit from home health PT to progress his mobility and strength. Goals Bed Mobility Goal Standby Assistance Transfer Goal Standby Assistance,Front Wheeled Walker Gait Goal Standby Assistance,Front Wheel Walker Gait Distance 100 Other Goals improve ambulation without AD/ least restrictive AD 150 ft SBA up/down 4 steps L rail ascending SBA Days to Meet Goals 10 Frequency of Treatment Frequency Of Treatment Once a Day Treatment Plan Physical Therapy Treatment Plan Bed Mobility Training,Transfer Training,Gait Training, Therapeutic Exercise,Balance Retraining,Discharge Planning, Hot or Cold Pack,Neuromuscular Re-ed,Coordination Retraining Precautions Other Precautions O2 sat Recommendations To Nursing Amount of Assist Needed Standby Assistance Discharge Recommendations PT Discharge Recommendations Home with Assistance,Home Health Equipment Needed for Home Before FWW if going home and not safe Discharge with SPC/without AD Transportation Needs at Discharge Private Vehicle
--- NOTE | 2022-01-31 11:09 | P.DS_ITS ---
History of Present Illness History of Present Illness Date Patient Seen: 01/31/22 Time Patient Seen: 11:10 Chief complaint: Stomach issues high blood pressure high blood suga Narrative: Per Dr. Victoria, Mr. Foss is a 66M with PMH DM, HTN, GERD who presents to the hospital with urinary hesitancy, abdominal pain and shortness of breath. He notes at least a week of abdominal pain that has worsened over the last few days. He has noted nausea and vomiting. No diarrhea. He feels weak, he has not had much appetite for the last few days. He has had a fever to 102.2. He has no cough. He does note shortness of breath. He has not had dysuria but he has had straining with urination. No chest pain, palpitation, lower extremity edema. In the ED workup was done, vitals notable for temp 100, heart rate 126. blood pressure 146/81. O2 sat dropped to the 80s and placed on 2L o2. Labs notable for WBC 15.9, hgb 13, plts 183. Na 126. BUN 31, creatinine 1.21. Blood sugar 531. Lactate 1.1. Procal 1.69. trop 0.039->0.043. UA negative for infection. COVID negative. Chest xray showed left lateral upper lobe density that was ill defined. CT abdomen/pelvis showed right lower pulmonary infiltrate and bilateral renal cysts with mild bilateral hydronephrosis and hydroureter. He had a blankenship placed with immediate drainage of significant urine. He was ordered for fluids a nd antibiotics and admitted for further treatment. Family history: mother CVA, sister with breast cancer Discharge Providers Provider Date of admission: 01/24/22 18:12 Discharge Date: 01/31/22 Primary care physician: Abiel Ascencio MD Consults: 01/24/22 20:02 Consult to Dietitian, Adult Urgent Comment: Reason For Exam: diabetic 01/25/22 07:48 Consult to Dietitian, Adult Routine Comment: Reason For Exam: A1c 12.2%!!! 01/27/22 13:34 Consult to Physical Therapy Evaluate & Treat Comment: Physician Instructions: Evaluate and Treat 01/28/22 10:51 Consult to Tele-it service continuity supervisor Routine Comment: Consulting Provider: Brian Tele-intensivists Reason for consultation: Tubing Tester services 01/30/22 11:10 Consult to Physical Therapy Evaluate & Treat Comment: Physician Instructions: Evaluate and Treat Discharge provider: Osorio Jeter DO Summary Hospital Course Discharge Diagnosis: Please see hospital course by problem list noted below. Hospital Course: Mr. Foss is a 66M with PMH DM who presents with abdominal pain, shortness of breath, and urinary hesitancy found to have acute urinary retention and pneumonia with respiratory failure. This improved with antibiotic therapy and he was able to be discharged home when no longer requiring supplemental oxygen therapy. 1. Acute hypoxemic respiratory failure secondary to worsening bacterial pneumonia -patient with o2 sats in the 80s on admission, patient with worsening pneumonia after initial antibiotics. Concern for possible autoimmune or less common cause. However this appears less likely as he improved with diuresis and antibiotic therapy and was never given steroids. -transferred to ICU due to increased O2 requirements initially, as high as 8 L during his stay. He was able to be completely weaned from supplemental oxygen at the time of discharge. He was able to ambulate stairs with PT and O2 saturations remained in the low 90s without supplemental oxygen therapy. -COVID testing negative x2. -complement levels are elevated. ANCA and ZARINA pending. HIV negative. -has been getting diuresed as well with improvement. Echo not obtained as would not acutely jacquard loom card changer. -CTA negative for PE but did show bilateral pneumonia. -patient was discharged on oral augmentin to complete treatment for pneumonia. 2. Abdominal pain, improving -suspect secondary to acute urinary retention vs pleuritic pain from PNA -CT abd showed bilateral hydronephrosis -symptoms resolved quite quickly with resolution of retention. -CT angio abd 01/28 with no source found of pain 3. Acute urinary retention secondary to likely BPH with outlet obstruction, improving -blankenship placed in ED with good urinary output -CT showed mild hydronephrosis -UA negative for infection -started tamsulosin during admission. Blankenship was removed prior to discharge with adequate voiding after. 4. Type 2 Diabetes on insulin, with hyperglycemia -prescribed 80U lantus daily at home, does not take regularly -continued 40U lantus daily with insulin sliding scale. He will resume his regular amount on discharge. -a1c 12.2% -marine animal trainer consulted and provided education 5. Elevated troponin -patient with no chest pain or EKG changes -initial trop 0.039, then 0.038 -suspect secondary to demand from infection 6. Active smoker -encouraged cessation -nebs prn 7. Renal cysts vs mass -seen incidentally on CT, possibly polycystic kidney disease -renal US shows large right cyst vs mass, recommend outpatient f/u with MRI 8. Transaminitis ?- unclear etiology, possibly drug induced which is suspected at this time. ?- this improved the following day. Recommend repeat lab testing in a few weeks to make sure liver enzymes have normalized. Time Spent with Patient Time spent: Greater than 30 minutes Exam Vital Signs (past 8 hours): - 01/31/22 04:00 01/31/22 08:30 01/31/22 08:00 Temperature 97.4 F L 97.6 F Pulse Rate 94 H 80 74 Respiratory Rate 19 16 15 Blood Pressure 163/74 H 142/67 H Pulse Oximetry 92 95 97 Oxygen Delivery Method High Flow Nasal Cannula Oxygen Flow Rate 2 2 2 Fraction of Inspired Oxygen 28 SaO2/FiO2 Ratio 335 Oxygen Delivery Method High Flow Nasal Cannula Oxygen Flow Rate 2 Narrative Exam Narrative: GEN: no acute distress, appears older than stated age HEENT: dry mucous membranes, poor dentition, PERRL NECK: trachea midline, no JVD PULM: poor air movement bilaterally, no wheezes, rhonchi, rales ABD: S NT ND EXT: warm and well perfused with no edema NEURO: no focal deficits noted, awake and alert. Objective Labs Result Diagrams: 01/31/22 05:54 01/31/22 05:54 Labs: Laboratory Results - last 24 hr 01/31/22 01/31/22 05:54 05:54 WBC 10.0 RBC 3.71 L Hgb 11.0 L Hct 32.2 L MCV 86.9 MCH 29.8 MCHC 34.3 RDW 14.4 Plt Count 335 Neut % (Auto) 81.0 H Lymph % (Auto) 9.5 L [place] % (Auto) 8.9 Eos % (Auto) 0.3 L Baso % (Auto) 0.3 Neut # (Auto) 8100 H Lymph # (Auto) 1000 L [place] # (Auto) 900 Eos # (Auto) 0 Baso # (Auto) 0 Sodium 131 L Potassium 4.3 Chloride 99 Carbon Dioxide 24 BUN 29 H Creatinine 1.29 H Estimated GFR > 60 BUN/Creatinine Ratio 22.5 H Glucose 374 H D Calcium 8.9 Magnesium 2.0 Total Bilirubin 0.4 AST 49 ALT 88 H Alkaline Phosphatase 613 H Total Protein 6.6 Albumin 3.0 L Globulin 3.6 Albumin/Globulin Ratio 0.8 L PFSH Medical History Acid reflux Diabetes Hypertension Surgical History History of partial colectomy Social History household members: spouse Smoking Status: Current every day smoker alcohol intake: current Discharge Plan Discharge Plan Patient Disposition: Home Provider Discharge Comment: You were admitted to the hospital with respiratory failure needing oxygen. This has improved with fluid removal and antibiotic treatments. Please continue antibiotics at home. Follow up with PCP as soon as possible to review hospitalization, BP medication management. Nursing Discharge Comment: Patient will call to make appointment with their PCP Dr Ascencio. MD office is aware and will f/u with patient for appoinment. Discharge orders & Medications Prescriptions: New tamsulosin [Flomax] 0.4 mg Capsule 0.4 mg PO DAILY 30 Days Qty: 30 0RF furosemide 20 mg tablet 20 mg PO DAILY 30 Days Qty: 30 0RF amoxicillin-pot clavulanate 875-125 mg tablet 1 tab PO BID 5 Days Qty: 10 0RF Continued cyclobenzaprine 10 mg tablet 10 mg PO TID albuterol sulfate [Ventolin HFA] 90 mcg/actuation HFA aerosol inhaler 2 puff INHALATION BID insulin glargine [Lantus Solostar U-100 Insulin] 100 unit/mL (3 mL) Insulin Pen 80 unit SUBCUT DAILY Rx Instructions: @11am Humalog U-100 Insulin 100 unit/mL Cartridge See Rx Instructions .ROUTE .COMPLEX Rx Instructions: 8-14u based on meal Diet/Activity/Treatments Diet: Diet as Tolerated Activity: As tolerated Visit Report/Discharge Packet Instructions: Urinary Tract Infection, Pneumonia-Adult, DI for Pneumonia -- Adult, DI for Urinary Tract Infection (UTI), DI for Benign Prostatic Hyperplasia, DI for Urinary Retention in Men, DI for Atypical Pneumonia Discharge Data Primary Care Provider: Abiel Ascencio VTE Deep Vein Thrombosis/Pulmonary Embolism Present on Admission: No
[2022-01-31 12:00] VITALS: BP 146/76; PULSE 82; RESP 19; TEMP 36.6; O2SAT 92
--- NOTE | 2022-01-31 13:01 | PC.NURSE ---
discharge instructions given, all questions answered, patient to make PCP appointment, taken by w/c to entrance, picked up patient, and patient collected all belongings.
[2022-02-01 03:51] LABS: Complement Total CH50 > 60 U/mL (>41)
[2022-02-01 18:27] LABS: ANA Screen, IFA Negative (.)
[2022-02-02 14:48] LABS: Atypical P-ANCA Titer <1:20 titer (Neg:<1:20); P-ANCA Titer <1:20 titer (Neg:<1:20)
[2022-02-16 13:20] LABS: Antiproteinase 3 AB >8.0
[2022-02-16 13:21] LABS: Antimyeloperoxidase AB <0.2
== END 2022-01-31 13:05 | disposition home or self-care (01) | DRG 193 ==
LOC: ED 15:18 → AC 18:13 → ICU 01-31 09:54 → AC 01-31 10:08 → ICU 01-31 10:08
PROVIDERS: Internal Medicine; Admitting Provider Student in an Organized Health Care Education/Training Program; Emergency Provider Emergency Medicine; PCP Family Medicine; Referring Provider Emergency Medicine; Visit Provider Student in an Organized Health Care Education/Training Program
DX: J15.9 Unspecified bacterial pneumonia (principal); J96.01 Acute respiratory failure with hypoxia; I24.8 Other forms of acute ischemic heart disease; N13.8 Other obstructive and reflux uropathy; N40.1 Benign prostatic hyperplasia with lower urinary tract symptoms; F17.210 Nicotine dependence, cigarettes, uncomplicated; E11.65 Type 2 diabetes mellitus with hyperglycemia; Z79.4 Long term (current) use of insulin; Z20.822 Contact with and (suspected) exposure to COVID-19
CPT/HCPCS: 36415; 51798; 71045; 71275; 74174; 74177; 76770; 80048; 80053; 81001; 82595; 82805; 82962; 83036; 83520; 83605; 83615; 83690; 83735; 83880; 84145; 84484; 85025; 85379; 86038; 86140; 86160; 86162; 86256; 87040; 87070; 87205; 87389; 87635; 87797; 93005; 94640; 94760; 94762; 96365; 96375; 97116; 97163; 97530; 99233; 99284; 99285; 99291; C9803; J0692; J0696; J1170; J1650; J1815; J1940; J2405; Q9967